=== PATIENT | female | born 1970 | race Caucasian/White ===

== ENCOUNTER → 2016-09-20 | Outpatient (CLI) | payer BC ==
[~2016-09-20] MED LIST: ASCAUNK; MULTTAB58 PO
== END | disposition home or self-care (01) ==
LOC: C.PAPS 10:17
PROVIDERS: ATTEND Obstetrics & Gynecology
DX: Z01.419 Encounter for gynecological examination (general) (routine) without abnormal findings (principal)

== ENCOUNTER → 2016-10-25 | Outpatient (CLI) | payer BC ==
[2016-10-25 10:07] LABS: ESTIMATED AVERAGE GLUCOSE 114 mg/dl; HA1C FLAG Normal (Normal)
[2016-10-25 10:17] LABS: BLOOD UREA NITROGEN 19 mg/dl (7-18); BUN/CREATININE RATIO 19.5 (10-20); CALCIUM 8.7 mg/dl (8.5-10.1); CARBON DIOXIDE 27 mmol/L (21-32); CHLORIDE 104 mmol/L (98-107); CHOLESTEROL 204 mg/dl (0-200); CHOLESTEROL/HDL RATIO 4.6; CREATININE 0.99 mg/dl (0.60-1.20); GLUCOSE 75 mg/dl (70-99); HDL CHOLESTEROL 44 mg/dl; LDL CHOLESTEROL CALCULATED 142 mg/dl; POTASSIUM 4.1 mmol/L (3.5-5.1); SODIUM 139 mmol/L (136-145); TRIGLYCERIDES 90 mg/dl (0-150); VERY LOW DENSITY LIPOPROT CALC 18 mg/dl
== END | disposition home or self-care (01) ==
LOC: C.LAB1850 07:00
PROVIDERS: ATTEND Nurse Practitioner
DX: R73.01 Impaired fasting glucose (principal); Z13.1 Encounter for screening for diabetes mellitus; Z13.220 Encounter for screening for lipoid disorders; E55.9 Vitamin D deficiency, unspecified

== ENCOUNTER 2018-10-08 13:42 | Inpatient (IN) ==
[2018-10-08] MEDS ORDERED: ONDANSETRON INJ 2 MG/ML 2 ML VIAL IV STA (14:04)
[2018-10-08] MEDS ORDERED: HYDROmorphone INJ 0.5 MG/0.5 ML SYR IV PRN ×2 (14:04→20:01)
[2018-10-08 14:45] LABS: Basophils # (auto) 0.01 K/uL (0-0.2); Basophils % (auto) 0.1 %; Hematocrit (blood only) 45.2 % (37-47); Hemoglobin 15.5 g/dL (12.0-16.0); Immature Granulocytes # (auto) 0.07 K/uL (0.00-0.02); Immature Granulocytes % (auto) 0.5 %; Lymphocytes # (auto) 1.86 K/uL (1.2-3.4); Mean Corpuscular Hgb Conc 34.3 g/dL (32-36); Mean Corpuscular Volume 91.3 fL (80-100); Mean Platelet Volume 10.2 fL (7.4-10.4); Monocytes # (auto) 0.87 K/uL (0.11-0.59); Monocytes % (auto) 5.6 %; Neutrophils # (auto) 12.68 K/uL (1.4-6.5); Neutrophils % (auto) 81.8 %; Platelet Count 362 K/uL (130-400); RDW Standard Deviation 46.6 fL (36.4-46.3); Red Blood Count 4.95 M/uL (4.2-5.4); White Blood Count 15.49 K/uL (4.8-10.8)
--- NOTE | 2018-10-08 15:03 | XRay Report ---
XR chest 1V portable CLINICAL HISTORY: Chest Pain pain COMPARISON STUDY: 09/21/2018 FINDINGS: The bones soft tissues and hemidiaphragms are normal. The cardiomediastinal silhouette is n ormal. The lungs are clear. The pulmonary vasculature is normal. IMPRESSION: Negative chest. The above report was generated using voice recognition software. It may contain grammatical, syntax or spelling errors. Electronically signed by: Roel Lucas M.D. 10/08/2018 3:02 PM
[2018-10-08 15:05] LABS: Partial Thromboplastin Ratio 0.8; Prothrombin Time 10.2 Seconds (9.0-12.0)
[2018-10-08 15:07] LABS: Alanine Aminotransferase 39 U/L (12-78); Albumin Level 4.2 gm/dl (3.4-5.0); Aspartate Aminotransferase 9 U/L (15-37); Blood Urea Nitrogen 15 mg/dl (7-18); Calcium 9.7 mg/dl (8.5-10.1); Carbon Dioxide 25 mmol/L (21-32); Chloride 104 mmol/L (98-107); Creatinine Clr Calc Pharmacy 93.7 ml/min; Est GFR (African American) 90.7; Est GFR (Non-African American) 78.2; Glucose 123 mg/dl (70-99); Potassium 4.3 mmol/L (3.5-5.1); Sodium 136 mmol/L (136-145)
[2018-10-08 15:12] LABS: Albumin Globulin Ratio 1.1 (0.9-2); Alkaline Phosphatase 106 U/L (45-117); Bilirubin,Total 0.4 mg/dl (0.2-1); Globulin 3.8 gm/dl (2.5-4.0); Troponin I < 0.015 ng/ml (0-0.045)
--- NOTE | 2018-10-08 16:00 | Ultrasound Report ---
US venous doppler LE BI HISTORY: Pain. Edema. eval for dvt COMPARISON STUDY: M 07/12/2013 FINDINGS: Acute deep venous thrombosis within the right popliteal vein and one of the peroneal election clerk ior tibial veins. All remaining venous structures of the right as well as left leg appear unremarkabl e. Several varicosities are present but appear patent. IMPRESSION: Acute deep venous thrombosis right leg involving the popliteal and posterior tibial venous complexes. The above report was generated using voice recognition software. It may contain grammatical, syntax or spelling errors. Electronically signed by: Roel Lucas M.D. 10/08/2018 3:58 PM
[2018-10-08] MEDS ORDERED: HEPARIN 25000 UNIT/500 ML D5W IV ONE (16:03)
[2018-10-08] MEDS ORDERED: HEPARIN SOD 5,000 UNIT/0.5 ML VIAL ONE (16:04)
--- NOTE | 2018-10-08 16:06 | Emergency Department Note ---
Entered by Mamta Aguilar acting as a scribe for ED Provider Note CHIEF COMPLAINT: Cough and difficulty breathing HISTORY OF PRESENT ILLNESS: The patient is a 47 year old female presenting at the Emergency Room with complaints of cough and difficulty breathing. The patient reports she was at the hospital when they noticed blood clots in the lungs on a CT scan and referred her to the Emergency Room. She states the symptoms began 6 weeks ago with associated chest pain and occasional restriction in her airway. She notes she has not been able to sleep due to anxiety about her breathing issues. The patient denies any new swelling of her legs but does note she had surgery for varicose veins in her bilateral legs in the past year. She reports she was diagnosed with bronchitis and an xray has been completed recently. She states she has a history of asthma and superficial blood clots in her right thigh. She notes she has white spots on back of throat. The patient reports her aunt has a history of blood clots in her lungs. Pt denies LOC, headache, fevers, chills, diaphoresis, visual changes, neck pain, nausea, vomiting, abdominal pain, back pain, melena, hematochezia, urinary symptoms, numbness, weakness, lymphadenopathy, rash, or other complaints. REVIEW OF SYSTEMS: See HPI for pertinent positives and negatives. A total of ten systems were reviewed and were otherwise negative. PMHx/PSHx: Asthma, Bronchitis, Varicose Veins SOCIAL HISTORY: Patient lives at home. PHYSICAL EXAM: GENERAL: Awake, alert, uncomfortable appearing, in no distress HENT: Normocephalic, atraumatic. Oropharynx unremarkable. Oral thrush. EYES: Normal conjunctiva. Sclera non-icteric. NECK: Inspection normal. Non-tender. Supple. No nuchal rigidity. FROM. No masses. RESPIRATORY: Clear to auscultation. No wheezes. No rales. Normal respiratory effort. CARDIAC: Borderline tachycardic. Normal rhythm. No murmurs. No rubs. Extremities warm and well perfused. Pulses equal. No JVD. GI: Soft, non-distended. No tenderness to palpation. No rebound or guarding. No masses. RECTAL: Deferred. MUSCULOSKELETAL: Atraumatic. Chest examination reveals no tenderness. The back is symmetrical on inspection without obvious abnormality. There is no CVA tenderness to palpation. No joint edema. LOWER EXTREMITIES: Calves are non-tender. Right leg is slightly larger than the left leg. No edema. No discoloration. NEURO: Normal sensorium. No sensory or motor deficits noted. SKIN: No rash or jaundice noted. EMERGENCY DEPARTMENT COURSE: 1350: Past medical records reviewed. The patient was evaluated in room []. A complete history and physical exam was performed. 1405: I discussed the patient's case with NORMA Dhaliwal, and he will evaluate the patient for further management. 1410: I updated the patient who verbalized agreement and understanding of the treatment plan. MEDICAL DECISION MAKING: Prior records/ancillary studies reviewed. Outpatient CT scan revealed the patient had bilateral pulmonary emboli. Triage Nursing notes reviewed and agree them. Additional history obtained from the family. The patient's history was concerning for Tory symptoms. Differential diagnosis: Etiologies such as pulmonary emboli, pneumonia, COPD, reactive airway disease, CHF, cardiac ischemia, pneumothorax, musculoskeletal, infections, gastrointestinal, as well as others were entertained. Physical examination: As above. ER treatment provided: IV heparin initiated On reassessment the patient felt better. Diagnostic interpretation by me: The electrocardiogram was negative for pathologic change. The labs revealed an unremarkable CBC except for mild leukocytosis. Patient is on prednisone. Chemistry panel unremarkable. Imaging studies: CT scan report was reviewed. Ultrasound imaging pending. Consultation: A consultation was placed with the hospitalist. The case was discussed and diagnostics were reviewed. The patient was evaluated in the ER for further treatment. IMPRESSION: Bilateral pulmonary embolism PLAN: Being evaluated by hospitalist The scribe's documentation has been prepared under my direction and personally reviewed by me in its entirety. I confirm that the note above accurately reflects all work, treatment, procedures, and medical decision making performed by me. 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 Beliefs That Will Affect Care: None marital status: Current Living Situation: Spouse current occupational status: employed Other Information That Helps Us Care for You: No Feels Safe at Home: Yes Safety Concerns: Feels Safe At This Time Smoking Status: Never smoker Hx Alcohol Use: Yes Hx Substance Use: No Results & Data Vital Signs Vital Signs - 24 hr 10/08/18 13:47 10/08/18 14:35 Temperature 36.5 C Temperature Source Oral Sepsis Recent Fever Within 48 Hours No Sepsis Action Taken by Nursing No Action Required Pulse Rate 96 H Respiratory Rate 24 Respiratory Effort / Characteristics Spontaneous Splinting (from pain) Respiratory Depth Shallow Normal Respiratory Pattern Regular Blood Pressure 149/106 H Blood Pressure Mean 120 Blood Pressure Position Sitting Pulse Oximetry 95 Oxygen Delivery Method Room Air Room Air Home Medications Current Medication List: was personally reviewed by me Laboratory Data Attestation: I reviewed the patient's lab results. Result diagrams: 10/08/18 14:25 10/08/18 14:25 Lab Results 10/08/18 10/08/18 10/08/18 Range/Units 14:25 14:25 14:25 WBC 15.49 H (4.8-10.8) K/uL RBC 4.95 (4.2-5.4) M/uL Hgb 15.5 (12.0-16.0) g/dL Hct 45.2 (37-47) % MCV 91.3 (80-100) fL MCH 31.3 (25-34) pg MCHC 34.3 (32-36) g/dL RDW Std Deviation 46.6 H (36.4-46.3) fL RDW Coeff of Ida 14.0 (11.5-14.5) % Plt Count 362 (130-400) K/uL MPV 10.2 (7.4-10.4) fL Immature Gran % (Auto) 0.5 % Neut % (Auto) 81.8 % Lymph % (Auto) 12.0 % [place] % (Auto) 5.6 % Eos % (Auto) 0.0 % Baso % (Auto) 0.1 % Immature Gran # (Auto) 0.07 H (0.00-0.02) K/uL Neut # (Auto) 12.68 H (1.4-6.5) K/uL Lymph # (Auto) 1.86 (1.2-3.4) K/uL [place] # (Auto) 0.87 H (0.11-0.59) K/uL Eos # (Auto) 0.00 (0-0.5) K/uL Baso # (Auto) 0.01 (0-0.2) K/uL PT 10.2 (9.0-12.0) Seconds INR 1.0 (0.9-1.1) APTT 22.0 (21.0-31.0) Seconds PTT Ratio 0.8 Sodium 136 (136-145) mmol/L Potassium 4.3 (3.5-5.1) mmol/L Chloride 104 (98-107) mmol/L Carbon Dioxide 25 (21-32) mmol/L Anion Gap 7.0 (3-11) BUN 15 (7-18) mg/dl Creatinine 0.87 (0.6-1.2) mg/dl Est Cr Clr Drug Dosing 93.7 ml/min Est GFR ( Amer) 90.7 Est GFR (Non-Af Amer) 78.2 BUN/Creatinine Ratio 17.0 (10-20) Glucose 123 H (70-99) mg/dl Calcium 9.7 (8.5-10.1) mg/dl Total Bilirubin 0.4 (0.2-1) mg/dl AST 9 L (15-37) U/L ALT 39 (12-78) U/L Alkaline Phosphatase 106 (45-117) U/L Troponin I < 0.015 (0-0.045) ng/ml Total Protein 8.0 (6.4-8.2) gm/dl Albumin 4.2 (3.4-5.0) gm/dl Globulin 3.8 (2.5-4.0) gm/dl Albumin/Globulin Ratio 1.1 (0.9-2) Lipase 153 (73-393) U/L Administered Medications Hydromorphone HCl (Dilaudid) 0.5 mg IV Q15M PRN PRN Reason: Pain Stop: 10/22/18 14:03 Last Admin: 10/08/18 14:43 Dose: 0.5 mg Documented by: [id number] Discontinued Medications Ondansetron HCl (Zofran) 4 mg IV NOW STA Stop: 10/08/18 14:05 Last Admin: 10/08/18 14:43 Dose: 4 mg Documented by: [id number] Imaging Data Radiologist's Impression: Radiology results as stated below per my review and radiologist interpretation: CT angio chest PE protocol CT DOSE: 506.20 mGycm HISTORY: Dyspnea Cough TECHNIQUE: Multiaxial CT images of the chest were performed following the intravenous administration of contrast to evaluate the pulmonary arteries. Maximal intensity projection images were also obtained. A dose lowering last hnique was utilized adhering to the principles of ALARA. COMPARISON STUDY: None. FINDINGS: The thoracic aorta is normal in course and caliber. No evidence for aneurysm or dissection. The pulmonary vasculature is remarkable for filling defects involving the lower lobe pulmonary arterial vasculature bilaterally as well as more central filling defects involving the second order vessels. No evidence for main or central pulmonary embolus. No evidence for saddle embolus. Smaller filling defects are identified within the upper lobe pulmonary arterial vasculature bilaterally. IMPRESSION: 1. The study is positive for bilateral acute pulmonary emboli. 2. Lungs otherwise are clear. The above report was generated using voice recognition software. It may contain grammatical, syntax or spelling errors. Electronically signed by: Roel Lucas M.D. 10/08/2018 1:31 PM ECG Data Attestation: I personally reviewed and interpreted this ECG as follows: Indication: SOB/dyspnea Rate (beats per minute): 95 Rhythm: normal sinus Findings: + Q waves (inferior); no PVC, no ST depression, no ST elevation and no acute ischemic change Blood Pressure Blood Pressure Findings: Elevated blood pressure Blood Pressure Disposition: further management by hospitalist Discharge Plan Visit Data Chief Complaint: Abnormal Labs/Diagnostic Testing Stated Complaint: SENT FROM CT FOR PE ED Provider: Andrea Leija Discharge Problem: Bilateral pulmonary embolism Patient Disposition: Being Evaluated by Hospitalist Forms Stand Alone Forms: My [facility] Prescriptions Prescriptions: No Action prednisone 10 mg tablet 1 dose PO DIRECTED RF: 0 atorvastatin 20 mg tablet 20 mg PO DAILY RF: 0 ipratropium-albuterol 0.5 mg-3 mg(2.5 mg base)/3 mL solution for nebulization 3 ml Inhalation Q4 PRN (Reason: Shortness Of Breath) RF: 0 lisinopril 20 mg tablet 20 mg PO DAILY RF: 0 promethazine-codeine 6.25-10 mg/5 mL Syrup 1 tsp PO HS PRN (Reason: Cough) RF: 0 norethindrone acetate 5 mg Tablet 5 mg PO DAILY RF: 0 albuterol sulfate 90 mcg/actuation HFA aerosol inhaler 1 - 2 puff Inhalation Q4 PRN (Reason: Shortness Of Breath) RF: 0 budesonide 1 mg/2 mL suspension for nebulization 1 dose Inhalation BID RF: 0 Referrals Referrals: Smita Winslow CRNP [Primary Care Provider] - The scribe's documentation has been prepared under my direction and personally reviewed by me in its entirety. I confirm that the note above accurately reflects all work, treatment, procedures, and medical decision making performed by me.
--- NOTE | 2018-10-08 16:48 | History & Physical Report ---
Date of Service October 08, 2018 Assessment & Plan (1) Bilateral pulmonary embolism: likely provoked from plane flight which was about 4 weeks ago will treat with heparin drip initially, vitals are stable hypercoagulable work up sent by ED, will need follow up with PCP transition to Xarelto tomorrow, plan for at least 6-12 months of treatment (2) Asthma: chronic, intermittent asthma typically well controlled currently on Prednisone taper for recent flare, on 20mg daily will use Nebulizers PRN lungs are clear, no wheezing at time of admission dyspnea and cough likely due to PE CTA chest showed no acute pathology in the lungs (3) DVT (deep venous thrombosis): right leg heparin drip and then Xarelto (4) Chest pain: due to excessive coughing, worse with cough use Percocet PRN as pain is pretty severe (5) Oral thrush: use Nystatin Q6 likely from inhaled steroids time spent on this admission was 40 minutes, included speaking with ED physician, reviewing records and speaking with patient and her History of Present Illness Chief Complaint: Cough for 5 weeks Primary Care Provider: IZABELLA Felix 47 yo female with history of asthma that is intermittent, typically with two exacerbations a year who presents from her PCP office. She was sent to pulmonogy today for evaluation because she has been coughing for 5 weeks straight. She says that it is typical for her to get a bout of bronchitis this time of year but usually it responds quickly to Prednisone and a course of antibiotics in addition to some nebulizer treatments. Despite the typical treatment her cough was still lingering. The cough was productive at times but not every time. No hemoptysis seen. She coughs violently at times, has caused her right side of her chest to hurt. She denies pain with deep inspiration. She feels a tightness in her chest when she lays down. She was sent for a CTA of her chest as outpatient and it showed bilateral PE so she was sent to the ED. In the ED her vitals were stable, no hypoxia. Labs were drawn and she was sent for lower extremity doppler that showed a DVT in right lower leg. In hindsight, the patient says her right calf has been swollen and tender for a few weeks. She did fly on a plan 4 weeks ago but it was not long. 30 minute flight from [place] to [place] and then an hour flight to [place]. Then she flew back. She remembers having the cough prior to flying but then her symtpoms got worse when she returned. She does have a personal history of superficial clots but never a DVT. She had varicose vein surgery on the right leg in the past. She does not smoke. She has an aunt who had blood clots. She was started on heparin drip and given Dilaudid for pain. Admission requested. Allergies Allergy/AdvReac Type Severity Reaction Status Date / Time No Known Allergies Allergy Unverified 10/08/18 14:39 Home Medications Home Medications Medication Instructions Recorded Confirmed Type albuterol sulfate 1 - 2 puff INHALATION Q4 PRN 10/08/18 10/08/18 History atorvastatin 20 mg PO DAILY 10/08/18 10/08/18 History budesonide 1 dose INHALATION BID 10/08/18 10/08/18 History ipratropium-albuterol 3 ml INHALATION Q4 PRN 10/08/18 10/08/18 History lisinopril 20 mg PO DAILY 10/08/18 10/08/18 History norethindrone acetate 5 mg PO DAILY 10/08/18 10/08/18 History prednisone 1 dose PO DIRECTED 10/08/18 10/08/18 History promethazine-codeine 1 tsp PO HS PRN 10/08/18 10/08/18 History Past Med/Surg History Medical History Bronchitis (Acute) Asthma (Chronic) Varicose veins of both lower extremities Family History Other Blood clot in vein Social History Preferred Language: Greenlandic Communication Ability: Effective 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 Beliefs That Will Affect Care: None marital status: Current Living Situation: Spouse current occupational status: employed Other Information That Helps Us Care for You: No Feels Safe at Home: Yes Safety Concerns: Feels Safe At This Time Smoking Status: Never smoker Hx Alcohol Use: Yes Hx Substance Use: No Review of Systems All systems reviewed & are unremarkable except as noted in HPI & below Constitutional: + fatigue; no fever, no chills, no sweats and no weakness Ear, Nose, Mouth, Throat: + sore throat; no dizziness Respiratory: + cough, + chest congestion, + dyspnea, + dyspnea on exertion, + pain with cough and + sputum production; no change in sputum, no hemoptysis, no pain on inspiration, no snoring and no wheezing Cardiovascular: + chest pain, + dyspnea, + dyspnea on exertion and + calf pain (right leg); no chest pain at rest, no chest pain with activity, no radiating jaw, neck or arm pain, no dyspnea at rest, no lightheadedness, no syncope and no edema Gastrointestinal: no abdominal pain, no nausea, no vomiting, no constipation and no diarrhea/loose stools Genitourinary (Female): no dysuria, no difficulty urinating, no urinary frequency, no urinary hesitancy and no urinary urgency Musculoskeletal: no back pain and no neck pain Physical Exam Vital Signs (Past 24 Hours): Last Vital Signs Temp 36.5 C 10/08/18 13:47 Pulse 96 H 10/08/18 16:19 Resp 18 10/08/18 16:19 BP 144/83 H 10/08/18 16:19 Pulse Ox 96 10/08/18 16:19 Constitutional: WD/WN, vitals as above Eyes: PERRL, conjunctivae normal, anicteric sclerae ENMT: external ear and nose normal, oropharynx normal Neck: trachea midline, no thyromegaly Respiratory: normal respiratory effort, lungs clear to auscultation Cardiovascular: RRR, no murmur, no edema Chest (Breasts): Chest: normal inspection of chest (right ribs tender to palpation) Gastrointestinal (Abdomen): normal bowel sounds, soft, nontender, no hepatosplenomegaly Musculoskeletal: no cyanosis or clubbing, extremities motor strength 5/5 Skin: no rashes, warm and dry Neurologic: patellar DTR's 2+ bilat, sensation intact and PERRL, EOMI, accommodation nl, no face palsy, no dysarthria Psychiatric: A+Ox3, euthymic affect Lymphatic: no cervical or axillary lymphadenopathy Results & Data Laboratory Results Laboratory Results - last 24 hr 10/08/18 10/08/18 10/08/18 14:25 14:25 14:25 WBC 15.49 H RBC 4.95 Hgb 15.5 Hct 45.2 MCV 91.3 MCH 31.3 MCHC 34.3 RDW Std Deviation 46.6 H RDW Coeff of Ida 14.0 Plt Count 362 MPV 10.2 Immature Gran % (Auto) 0.5 Neut % (Auto) 81.8 Lymph % (Auto) 12.0 [place] % (Auto) 5.6 Eos % (Auto) 0.0 Baso % (Auto) 0.1 Immature Gran # (Auto) 0.07 H Neut # (Auto) 12.68 H Lymph # (Auto) 1.86 [place] # (Auto) 0.87 H Eos # (Auto) 0.00 Baso # (Auto) 0.01 PT 10.2 INR 1.0 APTT 22.0 PTT Ratio 0.8 Sodium 136 Potassium 4.3 Chloride 104 Carbon Dioxide 25 Anion Gap 7.0 BUN 15 Creatinine 0.87 Est Cr Clr Drug Dosing 93.7 Est GFR ( Amer) 90.7 Est GFR (Non-Af Amer) 78.2 BUN/Creatinine Ratio 17.0 Glucose 123 H Calcium 9.7 Total Bilirubin 0.4 AST 9 L ALT 39 Alkaline Phosphatase 106 Troponin I < 0.015 Total Protein 8.0 Albumin 4.2 Globulin 3.8 Albumin/Globulin Ratio 1.1 Lipase 153 Diagnostic Findings US venous doppler LE BI HISTORY: Pain. Edema. eval for dvt COMPARISON STUDY: 07/12/2013 FINDINGS: Acute deep venous thrombosis within the right popliteal vein and one of the peroneal posterior tibial veins. All remaining venous structures of the right as well as left leg appear unremarkable. Several varicosities are present but appear patent. IMPRESSION: Acute deep venous thrombosis right leg involving the popliteal and posterior tibial venous complexes. CT angio chest PE protocol FINDINGS: The thoracic aorta is normal in course and caliber. No evidence for aneurysm or dissection. The pulmonary vasculature is remarkable for filling defects involving the lower lobe pulmonary arterial vasculature bilaterally as well as more central filling defects involving the second order vessels. No evidence for main or central pulmonary embolus. No evidence for saddle embolus. Smaller filling defects are identified within the upper lobe pulmonary arterial vasculature bilaterally. IMPRESSION: 1. The study is positive for bilateral acute pulmonary emboli. 2. Lungs otherwise are clear. Code Status & VTE Plan Code Status full code VTE Prophylaxis Plan VTE Prophylaxis will be ordered: Yes
[2018-10-08] MEDS ORDERED: PROMETHAZINE PO PRN (17:25)
[2018-10-08] MEDS ORDERED: ACETAMINOPHEN 325 MG TAB PO PRN (17:25)
[2018-10-08] MEDS ORDERED: ALBUT/IPRATROP 3MG/0.5MG NEB 3 ML VIAL INH PRN (17:25)
[2018-10-08] MEDS ORDERED: Heparin IV Standard *NO* Bolus IV SCH (17:25)
[2018-10-08] MEDS ORDERED: ALBUT/IPRATROP 3MG/0.5MG NEB 3 ML VIAL NEB PRN (17:25)
[2018-10-08] MEDS ORDERED: CODEINE PO PRN (17:25)
[2018-10-08] MEDS ORDERED: OXYCODONE/ACETAMINOPHEN 5mg/325mg TAB PO PRN (17:30)
[2018-10-08] MEDS ORDERED: Heparin Adult STANDARD Wt-Based Dextrose 5% 25,000 units/500 mL IV SCH (18:00)
[2018-10-08] MEDS: NYSTATIN SUSP 500,000 U/5 ML UDC PO SCH ×2 (18:10→20:34)
[2018-10-08] MEDS: ONDANSETRON INJ 2 MG/ML 2 ML VIAL IV PRN ×2 (18:51→23:30)
[2018-10-08] MEDS: BUDESONIDE 0.5 MG/2 ML VIAL (PULMICORT) INH SCH (21:53)
[2018-10-08 23:45] LABS: Partial Thromboplastin Ratio 1.1; Partial Thromboplastin Time 30.2 Seconds (21.0-31.0)
[2018-10-09] MEDS ORDERED: HEPARIN IV BOLUS 6,000 UNITS in SYRINGE 0 ML IV ONE
[2018-10-09 06:06] LABS: Hematocrit (blood only) 44.3 % (37-47); Hemoglobin 14.8 g/dL (12.0-16.0); Mean Corpuscular Hgb Conc 33.4 g/dL (32-36); Mean Corpuscular Volume 92.5 fL (80-100); Platelet Count 331 K/uL (130-400); RDW Coefficient of Variation 14.1 % (11.5-14.5); RDW Standard Deviation 47.6 fL (36.4-46.3); Red Blood Count 4.79 M/uL (4.2-5.4); White Blood Count 13.92 K/uL (4.8-10.8)
[2018-10-09 06:45] LABS: BUN Creatinine Ratio 17.4 (10-20); Calcium 8.6 mg/dl (8.5-10.1); Creatinine Clr Calc Pharmacy 90.7 ml/min; Est GFR (African American) 88.2; Est GFR (Non-African American) 76.1
[2018-10-09 06:46] LABS: Basophils # (auto) 0.03 K/uL (0-0.2); Basophils % (auto) 0.2 %; Eosinophils # (auto) 0.21 K/uL (0-0.5); Eosinophils % (auto) 1.5 %; Immature Granulocytes # (auto) 0.07 K/uL (0.00-0.02); Immature Granulocytes % (auto) 0.5 %; Lymphocytes # (auto) 5.75 K/uL (1.2-3.4); Lymphocytes % (auto) 41.3 %; Monocytes # (auto) 1.13 K/uL (0.11-0.59); Monocytes % (auto) 8.1 %; Neutrophils # (auto) 6.73 K/uL (1.4-6.5); Neutrophils % (auto) 48.4 %; RBC Morphology Unremarkable
[2018-10-09 07:01] LABS: Partial Thromboplastin Ratio 2.3
[2018-10-09 07:05] LABS: Partial Thromboplastin Time 62.6 Seconds (21.0-31.0)
[2018-10-09] MEDS: BUDESONIDE 0.5 MG/2 ML VIAL (PULMICORT) INH SCH (07:27)
[2018-10-09 07:33] VITALS: BP 108/72; O2SAT 99
[2018-10-09] MEDS: NYSTATIN SUSP 500,000 U/5 ML UDC PO SCH (08:30)
[2018-10-09 08:34] VITALS: TEMP 97.5
[2018-10-09] MEDS ORDERED: LISINOPRIL 20 MG TAB PO SCH (09:00)
[2018-10-09] MEDS ORDERED: NORETHINDRONE 5 MG TAB PO SCH (09:00)
[2018-10-09] MEDS ORDERED: ATORVASTATIN 20 MG TAB PO SCH (09:00)
[2018-10-09] MEDS ORDERED: predniSONE 20 MG TAB PO SCH (09:00)
[2018-10-09] MEDS ORDERED: RIVAROXABAN 15 MG TAB PO SCH (09:00)
[2018-10-09 10:58] VITALS: PULSE 94
--- NOTE | 2018-10-09 14:36 | Discharge Summary ---
Date of Service October 09, 2018 Admission HPI Per Admitting Provider 47 yo female with history of asthma that is intermittent, typically with two exacerbations a year who presents from her PCP office. She was sent to pulmonogy today for evaluation because she has been coughing for 5 weeks straight. She says that it is typical for her to get a bout of bronchitis this time of year but usually it responds quickly to Prednisone and a course of antibiotics in addition to some nebulizer treatments. Despite the typical treatment her cough was still lingering. The cough was productive at times but not every time. No hemoptysis seen. She coughs violently at times, has caused her right side of her chest to hurt. She denies pain with deep inspiration. She feels a tightness in her chest when she lays down. She was sent for a CTA of her chest as outpatient and it showed bilateral PE so she was sent to the ED. In the ED her vitals were stable, no hypoxia. Labs were drawn and she was sent for lower extremity doppler that showed a DVT in right lower leg. In hindsight, the patient says her right calf has been swollen and tender for a few weeks. She did fly on a plan 4 weeks ago but it was not long. 30 minute flight from [place] to [place] and then an hour flight to [place]. Then she flew back. She remembers having the cough prior to flying but then her symtpoms got worse when she returned. She does have a personal history of superficial clots but never a DVT. She had varicose vein surgery on the right leg in the past. She does not smoke. She has an aunt who had blood clots. She was started on heparin drip and given Dilaudid for pain. Admission requested. Admission Exam Per Admitting Provider Constitutional: WD/WN, vitals as above Eyes: PERRL, conjunctivae normal, anicteric sclerae ENMT: external ear and nose normal, oropharynx normal Neck: trachea midline, no thyromegaly Respiratory: normal respiratory effort, lungs clear to auscultation Cardiovascular: RRR, no murmur, no edema Chest (Breasts): Chest: normal inspection of chest (right ribs tender to palpation) Gastrointestinal (Abdomen): normal bowel sounds, soft, nontender, no hepatos plenomegaly Musculoskeletal: no cyanosis or clubbing, extremities motor strength 5/5 Skin: no rashes, warm and dry Neurologic: patellar DTR's 2+ bilat, sensation intact and PERRL, EOMI, accommodation nl, no face palsy, no dysarthria Psychiatric: A+Ox3, euthymic affect Lymphatic: no cervical or axillary lymphadenopathy Principal Diagnosis Bilateral pulmonary emboli Discharge Exam Constitutional WD/WN, vitals as above Eyes PERRL, conjunctivae normal, anicteric sclerae ENMT Ears: no hearing impairment and no external ear abnormality Nose: no external nose abnormality Mouth: no lip abnormality Throat: uvula midline and + posterior oropharynx abnormality (white plaque, discharge consistent with thrush) Neck trachea midline, no thyromegaly Respiratory normal respiratory effort, lungs clear to auscultation Cardiovascular RRR, no murmur, no edema Chest (Breasts) Chest: normal inspection of chest (right ribs tender to palpation) Gastrointestinal (Abdomen) normal bowel sounds, soft, nontender, no hepatosplenomegaly Musculoskeletal no cyanosis or clubbing, extremities motor strength 5/5 Skin no rashes, warm and dry Neurologic patellar DTR's 2+ bilat, sensation intact and PERRL, EOMI, accommodation nl, no face palsy, no dysarthria Psychiatric A+Ox3, euthymic affect Lymphatic no cervical or axillary lymphadenopathy Discharge Data Allergies Allergy/AdvReac Type Severity Reaction Status Date / Time No Known Allergies Allergy Unverified 10/08/18 14:39 Consultations 10/08/18 14:08 ED Decision to Admit Stat Ordered Studies 10/08/18 14:04 US venous doppler [facility] Hospital Course (1) Bilateral pulmonary embolism: likely provoked from plane flight which was about 4 weeks prior to symptoms treated with heparin drip initially, vitals are stable hypercoagulable work up sent by ED, will need follow up with PCP patient feeling fine the next morning, no issues over night vitals stable, specifically heart rate and blood pressure breathing well on room air, no distress transitioned to Xarelto 15mg BID, will take for 21 days then 20mg daily likely needs treated 6-12 months could consider referral to office systems technology instructor in next few weeks to months, especially if hypercoagulable panel abnormal (2) Asthma: chronic, intermittent asthma typically well controlled currently on Prednisone taper for recent flare, on 20mg daily instructed patient to complete that taper will use Nebulizers PRN lungs are clear, no wheezing at time of admission dyspnea and cough likely due to PE CTA chest showed no acute pathology in the lungs instructed to stop the inhaled budesonide due to the oral thrush (3) DVT (deep venous thrombosis): right leg, she does have symptoms of pain and swelling heparin drip and then Xarelto as above no clot in left leg (4) Chest pain: due to excessive coughing, worse with cough use Oxycodone PRN as pain is pretty severe if it is mild then use Motrin, Tylenol provided with Zofran PRN for any nausea associated with the Oxycodone (5) Oral thrush: Fluconazole x 14 days likely from inhaled steroids will hold statin for 14 days due to interaction with Fluconazole Total Time Total Time Spent Total Time Spent (In Minutes): 40 minutes Total Time Includes: Examination of the Patient, Discharge Planning, Medication Reconciliation and Other (discussion with at the bedside) Discharge Plan Discharge Items Patient Disposition: Home - Self-Care Reason For Visit: BILATERAL PE Discharge Diagnosis: Bilateral pulmonary emboli, right leg DVT chest pain from coughing Asthma Condition: Good Discharge Goals: Decrease discomfort, Improve disease control and Improve function Activity: Resume your previous activity Lifting: None Bathing: No limitations Sexual Activity: When tolerated Exercise/Sports: Gradually increase as tolerated Driving/Machine Use: No limitations Non-emergency contact: Primary Care Provider Call non-emergency contact if: you have any medication questions, your symptoms worsen, your pain is not controlled and you have a fever Follow-up/Referrals: Smita Winslow CRNP [Primary Care Provider] - 10/13/18 10:30 am (Please, follow up with Smita PAREKH on FridayOctober 13 at 10:30 am. ) Diet: Regular Addtl Provider Instructions: Medications - XARELTO: take 15mg twice a day for 15 days then change to 20mg daily in the evening - OXYCODONE: take as needed for rib pain - DIFLUCAN: take for oral thrush, take for 14 days - ZOFRAN: anti-nausea medication, take prior to Oxycodone to prevent some nausea Bilateral PE and DVT in right leg treat with Xarelto, see above use Oxycodone for rib pain if needed if pain is not severe then you can use Tylenol and Motrin you will need treated for 6-12 months, follow with PCP your blood work for hypercoagulable mutations is still pending, follow up with Smita Winslow Asthma: as we discussed, your lungs are clear, no wheezing cough and shortness of breath more likely to be due to pulmonary emboli stop BUDESONIDE twice a day, inhaled steroid that likely lead to oral thrush complete the Prednsione taper as prescribed use inhalers just as needed Oral thrush: due to inhaled steroids treat with Fluconazole for 14 days FOLLOW UP - Smita Winslow Prescriptions: New Xarelto 15 mg Tablet 15 mg PO BID 21 Days Qty: 42 RF: 0 Xarelto 20 mg tablet 20 mg PO DAILY Qty: 30 RF: 3 oxycodone 5 mg capsule 5 mg PO Q6 PRN (Reason: pain) Qty: 20 RF: 0 fluconazole [Diflucan] 100 mg tablet 100 mg PO DAILY 14 Days Qty: 14 RF: 0 ondansetron HCl [Zofran] 4 mg tablet 4 mg PO Q6 PRN (Reason: nausea and vomiting) 14 Days Qty: 20 RF: 0 Continued prednisone 10 mg tablet 1 dose PO DIRECTED RF: 0 atorvastatin 20 mg tablet 20 mg PO DAILY RF: 0 ipratropium-albuterol 0.5 mg-3 mg(2.5 mg base)/3 mL solution for nebulization 3 ml Inhalation Q4 PRN (Reason: Shortness Of Breath) RF: 0 lisinopril 20 mg tablet 20 mg PO DAILY RF: 0 promethazine-codeine 6.25-10 mg/5 mL Syrup 1 tsp PO HS PRN (Reason: Cough) RF: 0 norethindrone acetate 5 mg Tablet 5 mg PO DAILY RF: 0 albuterol sulfate 90 mcg/actuation HFA aerosol inhaler 1 - 2 puff Inhalation Q4 PRN (Reason: Shortness Of Breath) RF: 0 Discontinued budesonide 1 mg/2 mL suspension for nebulization 1 dose Inhalation BID RF: 0 Stand-Alone Forms: [facility] Discharge Orders: Discharge Order (Routine); Ordered 10/09/18 Ordered By: Bairon Jacobs Admission Data Admit Date/Time: 10/08/18 15:17 Attending Provider: Bairon Jacobs Admit Provider: Bairon Jacobs Primary Care Provider: Smita Winslow Other Providers: Bairon Jacobs Service: Telemetry Other Interventions: Discharge Summary Assessment (RN) Last Done: 10/09/18 10:57 Pending Studies at Discharge: Yes Studies:: hypercoagulable panel DC Date/Time DO NOT enter until pt leaves facility: 10/09/18 11:25
[2018-10-13 22:31] LABS: Anti Cardiolipin Ab IgG <14 GPL (< = 14); Anti Cardiolipin Ab IgM <12 MPL (< = 12); Anti-Thrombin III Activity 125 % activity (80-120); B2 Glycoprotein IgA <9 SAU (<=20); B2 Glycoprotein IgG <9 SGU (<=20); B2 Glycoprotein IgM <9 SMU (<=20); Lupus Anticoagulant Negative (Negative); Protein S Functional(Activity) 126 % (60-140)
== END 2018-10-09 11:25 | disposition home or self-care (01) | DRG 176 ==
LOC: ED 13:42 → 2S 15:17

== ENCOUNTER 2018-12-10 15:14 | Observation (INO) ==
--- NOTE | 2018-12-10 16:04 | Emergency Department Note ---
History of Present Illness General Chief complaint: Chest Pain Stated complaint: CHEST PAIN WHERE BLOOD CLOTS ARE LOCATED Time Seen by Provider: 12/10/18 15:45 History of Present Illness Maximum Pain Intensity: 5 This is a 48-year-old female who presents to the emergency department via pr ivate vehicle with complaints of "chest pain were blood clots are located". The patient notes that she was diagnosed with bilateral pulmonary emboli back in September of this year about 2 months ago. She has been on 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 since that time, indicating Xarelto. She has missed no doses. She states that after she was diagnosed she was seen 3 days later and had a repeat chest CT secondary to her symptoms and that did not show any new blood clots. She notes that she was doing well up until the past 1 to 2 days she began with left-sided chest pinching/discomfort that she is not sure what exacerbates this but does note it may be with exertion. She notes that it hurt more today therefore concerning her and prompting her arrival here today. She describes it now is more of a discomfort rather than pain but it was numerically rated as a 5/10 at one point. She has a history of hypertension and cholesterol but no diabetes. No history of TX. No family history of TX at a young age. Home Medications Home Medications Medication Instructions Recorded Confirmed Type albuterol sulfate 1 - 2 puff INHALATION Q4 PRN 10/08/18 12/10/18 History atorvastatin 20 mg PO DAILY 10/08/18 12/10/18 History ipratropium-albuterol 3 ml INHALATION Q4 PRN 10/08/18 12/10/18 History lisinopril 20 mg PO QAM 10/08/18 12/10/18 History promethazine-codeine 1 tsp PO HS PRN 10/08/18 12/10/18 History oxycodone 5 mg PO Q6 PRN #20 cap 10/09/18 12/10/18 Rx rivaroxaban [Xarelto] 20 mg PO DAILY #30 tab 10/09/18 12/10/18 Rx acetaminophen [Tylenol Extra 500 mg PO QID PRN 10/12/18 12/10/18 History Strength] cholecalciferol (vitamin D3) 5,000 unit PO QAM 10/12/18 12/10/18 History [Vitamin D3] omeprazole 20 mg PO BID PRN 12/10/18 12/10/18 History Allergies Allergy/AdvReac Type Severity Reaction Status Date / Time seasonal Allergy Intermediate sneezing/itchy Uncoded 12/10/18 16:09 watery eyes Past Med/Surg History Medical History Asthma Bronchitis Varicose veins of both lower extremities Family History Other Blood clot in vein Social History Preferred Language: Ukrainian Communication Ability: Effective 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 Beliefs That Will Affect Care: None marital status: Current Living Situation: Family current occupational status: employed Other Information That Helps Us Care for You: No Feels Safe at Home: Yes Safety Concerns: Feels Safe At This Time Smoking Status: Unknown if ever smoked Hx Alcohol Use: No Hx Substance Use: No Review of Systems A total of 10 systems reviewed and were otherwise negative Physical Exam Vital Signs Vital Signs - 24 hr 12/10/18 15:17 12/10/18 17:50 12/10/18 19:41 Temperature 36.8 C Temperature Source Oral Sepsis Recent Fever Within 48 Hours No Sepsis New/Unexplained Change in Mental Status No Sepsis Action Taken by Nursing No Action Required Pulse Rate 101 H Pulse Rate [Apical] 90 94 H Respiratory Rate 22 18 18 Respiratory Effort / Characteristics Non-Labored Respiratory Depth Normal Blood Pressure 143/85 H Blood Pressure [Right Arm] 131/80 114/71 Blood Pressure Mean 104 Blood Pressure Mean [Right Arm] 97 85 Pulse Oximetry 97 97 95 Oxygen Delivery Method Room Air Room Air 12/10/18 21:00 Temperature Temperature Source Sepsis Recent Fever Within 48 Hours Sepsis New/Unexplained Change in Mental Status Sepsis Action Taken by Nursing Pulse Rate Pulse Rate [Apical] 94 H Respiratory Rate 18 Respiratory Effort / Characteristics Non-Labored Respiratory Depth Normal Blood Pressure Blood Pressure [Right Arm] 121/77 Blood Pressure Mean Blood Pressure Mean [Right Arm] 91 Pulse Oximetry 97 Oxygen Delivery Method Room Air VITAL SIGNS - Vital signs and nursing notes were reviewed. Hypertensive, slightly tachycardic, otherwise stable. GENERAL - 48-year-old female appearing her stated age who is in no acute distress. Communicates well with provider and answers questions appropriately. SKIN - Without rashes. No meningeal or petechial rash HEAD - NC/AT. EYES - PERRL with EOMI bilaterally. Sclera anicteric. EARS - No deformities of external structures noted on gross examination bilaterally. NOSE - Midline and without cyanosis. No epistaxis or purulent drainage noted. MOUTH/OROPHARYNX - Without perioral cyanosis. NECK - Neck with FROM. No nuchal rigidity. LUNGS - Chest wall symmetric without accessory muscle use, intercostals retractions, or central cyanosis. Normal vesicular breath sounds CTA B/L. No wheezes, rales, or rhonchi appreciated. CARDIAC - RRR with S1/S2. No murmur, rubs, or gallops appreciated. ABDOMEN - Abdominal contour normal without pulsations or visible masses. BS normoactive all four quadrants. No tenderness, palpable masses, hepatosplenomegaly, or ascites noted. EXTREMITIES - No clubbing or peripheral cyanosis. No pretibial edema present. Perhaps slight enlargement of the right calf circumference compared to the left. +5/5 strength noted in UE/LE bilaterally. NEUROLOGIC - Cranial nerves II through XII grossly intact. PSYCH - A&Ox3 and cooperates fully with examiner. Pt is very pleasant and interacts well with examiner. Course Administered Medications Ioversol (Optiray 320 125ml) 119 ml IV ONCE PRN PRN Reason: Interaction Checking Stop: 12/14/18 17:11 Last Admin: 12/10/18 17:14 Dose: 119 ml Documented by: [id number] Medical Decision Making Laboratory Data Result diagrams: 12/10/18 16:13 12/10/18 16:13 Lab Results 12/10/18 12/10/18 12/10/18 Range/Units 16:13 16:13 16:13 WBC 8.31 (4.8-10.8) K/uL RBC 4.39 (4.2-5.4) M/uL Hgb 13.5 (12.0-16.0) g/dL Hct 39.6 (37-47) % MCV 90.2 (80-100) fL MCH 30.8 (25-34) pg MCHC 34.1 (32-36) g/dL RDW Std Deviation 44.1 (36.4-46.3) fL RDW Coeff of Ida 13.5 (11.5-14.5) % Plt Count 382 (130-400) K/uL MPV 10.0 (7.4-10.4) fL Immature Gran % (Auto) 0.2 % Neut % (Auto) 52.0 % Lymph % (Auto) 34.7 % [place] % (Auto) 10.7 % Eos % (Auto) 2.0 % Baso % (Auto) 0.4 % Immature Gran # (Auto) 0.02 (0.00-0.02) K/uL Neut # (Auto) 4.32 (1.4-6.5) K/uL Lymph # (Auto) 2.88 (1.2-3.4) K/uL [place] # (Auto) 0.89 H (0.11-0.59) K/uL Eos # (Auto) 0.17 (0-0.5) K/uL Baso # (Auto) 0.03 (0-0.2) K/uL PT 11.7 (9.0-12.0) Seconds INR 1.2 H (0.9-1.1) APTT 30.6 (21.0-31.0) Seconds PTT Ratio 1.1 Sodium 137 (136-145) mmol/L Potassium 3.9 (3.5-5.1) mmol/L Chloride 105 (98-107) mmol/L Carbon Dioxide 26 (21-32) mmol/L Anion Gap 6.0 (3-11) BUN 16 (7-18) mg/dl Creatinine 0.91 (0.6-1.2) mg/dl Est Cr Clr Drug Dosing 91.1 ml/min Est GFR ( Amer) 85.3 Est GFR (Non-Af Amer) 73.6 BUN/Creatinine Ratio 17.9 (10-20) Glucose 127 H (70-99) mg/dl Calcium 8.8 (8.5-10.1) mg/dl Magnesium 2.0 (1.8-2.4) mg/dl Total Bilirubin 0.2 (0.2-1) mg/dl AST 30 (15-37) U/L ALT 87 H (12-78) U/L Alkaline Phosphatase 95 (45-117) U/L Troponin I < 0.015 (0-0.045) ng/ml Total Protein 7.2 (6.4-8.2) gm/dl Albumin 3.7 (3.4-5.0) gm/dl Globulin 3.5 (2.5-4.0) gm/dl Albumin/Globulin Ratio 1.1 (0.9-2) Lipase 146 (73-393) U/L Specimen Hemolysis POC Ur Test (NEG) 12/10/18 12/10/18 Range/Units 18:49 19:33 WBC (4.8-10.8) K/uL RBC (4.2-5.4) M/uL Hgb (12.0-16.0) g/dL Hct (37-47) % MCV (80-100) fL MCH (25-34) pg MCHC (32-36) g/dL RDW Std Deviation (36.4-46.3) fL RDW Coeff of Ida (11.5-14.5) % Plt Count (130-400) K/uL MPV (7.4-10.4) fL Immature Gran % (Auto) % Neut % (Auto) % Lymph % (Auto) % [place] % (Auto) % Eos % (Auto) % Baso % (Auto) % Immature Gran # (Auto) (0.00-0.02) K/uL Neut # (Auto) (1.4-6.5) K/uL Lymph # (Auto) (1.2-3.4) K/uL [place] # (Auto) (0.11-0.59) K/uL Eos # (Auto) (0-0.5) K/uL Baso # (Auto) (0-0.2) K/uL PT (9.0-12.0) Seconds INR (0.9-1.1) APTT (21.0-31.0) Seconds PTT Ratio Sodium (136-145) mmol/L Potassium (3.5-5.1) mmol/L Chloride (98-107) mmol/L Carbon Dioxide (21-32) mmol/L Anion Gap (3-11) BUN (7-18) mg/dl Creatinine (0.6-1.2) mg/dl Est Cr Clr Drug Dosing ml/min Est GFR ( Amer) Est GFR (Non-Af Amer) BUN/Creatinine Ratio (10-20) Glucose (70-99) mg/dl Calcium (8.5-10.1) mg/dl Magnesium (1.8-2.4) mg/dl Total Bilirubin (0.2-1) mg/dl AST (15-37) U/L ALT (12-78) U/L Alkaline Phosphatase (45-117) U/L Troponin I < 0.015 (0-0.045) ng/ml Total Protein (6.4-8.2) gm/dl Albumin (3.4-5.0) gm/dl Globulin (2.5-4.0) gm/dl Albumin/Globulin Ratio (0.9-2) Lipase (73-393) U/L Specimen Hemolysis POC Ur Test NEG (NEG) Imaging Data Radiologist's Impression: CT angio chest PE protocol CT DOSE: 742.41 mGy.cm HISTORY: Dyspnea chest discomfort, hx PE, on Xarelto TECHNIQUE: Multiaxial CT images of the chest were performed following the intravenous administration of contrast to evaluate the pulmonary arteries. Maximal intensity projection images were also obtained. A dose lowering technique was utilized adhering to the principles of ALARA. COMPARISON STUDY: 10/12/2018 FINDINGS: Partial substernal thyroid unchanged from the prior exam. No significant cardiac enlargement. The pulmonary emboli procedure described are considerably diminished in prominence. Several small residual second-order filling defects. The central left lower lobe filling defects are essentially resolved. There are no significant new or interval filling defects. Small residual foci are present within the right upper right lower lobe and to a lesser extent left lower lobe. IMPRESSION: 1. Improving bilateral pulmonary emboli. 2. Several small peripheral filling defects considered to be minimal residual from the prior exam. 3. No new or interval findings. 4. Lungs remain clear. The above report was generated using voice recognition software. It may contain grammatical, syntax or spelling errors. Electronically signed by: Roel Lucas M.D. 12/10/2018 5:26 PM [facility] Narrative Patient was seen and evaluated as above in room C11. Review was performed of nursing notes and vital signs. After obtaining a thorough history and physical examination the above work up was performed. She presents to us today with chest discomfort. She has a history of PE. On examination she is slightly tachycardic, hypertensive but afebrile. Based upon her past mental history decision was made to obtain IV access and repeat a CTA of the chest after thoroughly discussing with her benefit versus risk. Results of the CT scan are as above. There are improving bilateral pulmonary emboli noted. It appears that there is overall improvement. Initial troponin was negative and not consistent with cardiac injury. Her EKG reveals normal sinus rhythm, rate of 95 bpm without any evidence of TX on this exam. The patient's labs reveal no leukocytosis or concerning anemia. Her coags do not reveal any concern and her metabolic panel does not reveal any evidence of kidney failure. Slight e levation of ALT at 87. Troponin then negative x2. Patient was found to have a heart score between 3 and 4. This changes depending upon the history in regard to suspicion. UPT is negative. The patient was educated upon benefit versus risk of inpatient management versus discharge. Given the patient's risk factors to include hypertension, BMI, hypercholesterolemia, age, history it is felt that it would be warranted if the patient was in agreement to be admitted for further evaluation and management. Patient was given the option and also agreed and preferred to stay. I believe this certainly is reasonable and recommended. I will also note that for her to have appropriate cardiac work-up in a reasonable amount of time will be difficult as this is currently evening approaching a holiday weekend. It is felt that it would likely be in the best interest of the patient to have this performed here in the hospital. I discussed the case with the hospitalist and attending physician. Please refer to further documentation regarding her stay Case was discussed with the attending physician. GCS: 15 In the evaluation and treatment of this patient, the following differential di agnoses were considered: TX, ASC, Dysrhythmia, Angina, Mediastinitis, GERD, Esophagitis, PE, Pneumonia, Bronchitis, Costochondritis, Rib Fracture, Zoster. Impression & Plan Chest pain Discharge Plan Visit Data *Final* Discharge Date/Time: 12/10/18 21:29 Chief Complaint: Chest Pain Stated Complaint: CHEST PAIN WHERE BLOOD CLOTS ARE LOCATED ED Provider: Reynaldo Maddox ED Midlevel Provider: John Welch Discharge Problem: Chest pain Patient Disposition: Admitted As Inpatient Condition: Good Discharge Instructions Interventions: ED Discharge Assessment Last Done: 12/10/18 21:29
[2018-12-10 16:27] LABS: Basophils # (auto) 0.03 K/uL (0-0.2); Basophils % (auto) 0.4 %; Eosinophils # (auto) 0.17 K/uL (0-0.5); Hematocrit (blood only) 39.6 % (37-47); Hemoglobin 13.5 g/dL (12.0-16.0); Immature Granulocytes # (auto) 0.02 K/uL (0.00-0.02); Immature Granulocytes % (auto) 0.2 %; Lymphocytes # (auto) 2.88 K/uL (1.2-3.4); Lymphocytes % (auto) 34.7 %; Mean Corpuscular Hgb Conc 34.1 g/dL (32-36); Mean Corpuscular Volume 90.2 fL (80-100); Monocytes # (auto) 0.89 K/uL (0.11-0.59); Monocytes % (auto) 10.7 %; Neutrophils # (auto) 4.32 K/uL (1.4-6.5); Platelet Count 382 K/uL (130-400); RDW Coefficient of Variation 13.5 % (11.5-14.5); RDW Standard Deviation 44.1 fL (36.4-46.3); Red Blood Count 4.39 M/uL (4.2-5.4); White Blood Count 8.31 K/uL (4.8-10.8)
[2018-12-10 16:35] LABS: INR 1.2 (0.9-1.1); Partial Thromboplastin Ratio 1.1; Partial Thromboplastin Time 30.6 Seconds (21.0-31.0); Prothrombin Time 11.7 Seconds (9.0-12.0)
[2018-12-10 16:50] LABS: Alanine Aminotransferase 87 U/L (12-78); Albumin Globulin Ratio 1.1 (0.9-2); Albumin Level 3.7 gm/dl (3.4-5.0); Alkaline Phosphatase 95 U/L (45-117); Aspartate Aminotransferase 30 U/L (15-37); BUN Creatinine Ratio 17.9 (10-20); Bilirubin,Total 0.2 mg/dl (0.2-1); Blood Urea Nitrogen 16 mg/dl (7-18); Calcium 8.8 mg/dl (8.5-10.1); Carbon Dioxide 26 mmol/L (21-32); Chloride 105 mmol/L (98-107); Creatinine Clr Calc Pharmacy 91.1 ml/min; Est GFR (African American) 85.3; Est GFR (Non-African American) 73.6; Globulin 3.5 gm/dl (2.5-4.0); Glucose 127 mg/dl (70-99); Potassium 3.9 mmol/L (3.5-5.1); Sodium 137 mmol/L (136-145); Total Protein 7.2 gm/dl (6.4-8.2); Troponin I < 0.015 ng/ml (0-0.045)
[2018-12-10] MEDS ORDERED: OPTIRAY 320 125ml IV PRN (17:12)
--- NOTE | 2018-12-10 17:28 | CT Scan Report ---
CT angio chest PE protocol CT DOSE: 742.41 mGy.cm HISTORY: Dyspnea chest discomfort, hx PE, on Xarelto TECHNIQUE: Multiaxial CT images of the chest were performed following the intravenous administration of contrast to evaluate the pulmonary arteries. Maximal intensity projection images were also obtaine d. A dose lowering technique was utilized adhering to the principles of ALARA. COMPARISON STUDY: 10/12/2018 FINDINGS: Partial substernal thyroid unchanged from the prior exam. No significant cardiac enlargemen t. The pulmonary emboli procedure described are considerably diminished in prominence. Several small res idual second-order filling defects. The central left lower lobe filling defects are essentially resol antonio. There are no significant new or interval filling defects. Small residual foci are present within the right upper right lower lobe and to a lesser extent left l ower lobe. IMPRESSION: 1. Improving bilateral pulmonary emboli. 2. Several small peripheral filling defects considered to be minimal residual from the prior exam. 3. No new or interval findings. 4. Lungs remain clear. The above report was generated using voice recognition software. It may contain grammatical, syntax or spelling errors. Electronically signed by: Roel Lucas M.D. 12/10/2018 5:26 PM
--- NOTE | 2018-12-10 21:14 | History & Physical Report ---
Date of Service December 10, 2018 Assessment & Plan (1) Chest pain: 48 y/o F Hx HTN, HLD, obese, glucose intolerance. Admitted with BL PEs 09/2018 following a plane flight. She presents with intermittent L CP for 3 days. Today the pain worsened, prompting her to visit the ER. She denies nause a, vomiting, diaphoresis, SOB above baseline or lightheadedness. The pain is nonradiating. Initial labs and EKG do not support acute ischemia. 1) CP - observation overnight due to multiple risk factors. AM stress scheduled. ASA, statin provided. She is anticoagulated with Xarelto 2) PEs - CT demonstrates marked improvement - she is taking Xarelto. 3) HTN, HLD - cont Lisinopril, Lipitor Full code - Xarelto prophylaxis Total time for this admit including review of labs, meds, imaging, records - discussion with pt and ER attending. Present on Admission?: Yes History of Present Illness Chief Complaint: Chest pain Primary Care Provider: IZABELLA Felix 48 y/o F Hx HTN, HLD, obese, glucose intolerance. Admitted with PEs 09/2018 following a plane flight. She presents with intermittent L CP for 3 days. Today the pain worsened, prompting her to visit the ER. She denies nausea, vomiting, diaphoresis, SOB above baseline or lightheadedness. The pain is nonradiating. Initial labs and EKG do not support acute ischemia. PMH: 1) HTN 2) HLD 3) Obese - BMI 38 4) Glucose intolerance 5) PEs 09/2018 Social: Does not drink or smoke Family: Parents are diabetic - no history of CAD Allergies Allergy/AdvReac Type Severity Reaction Status Date / Time seasonal Allergy Intermediate sneezing/itchy Uncoded 12/10/18 16:09 watery eyes Home Medications Home Medications Medication Instructions Recorded Confirmed Type albuterol sulfate 1 - 2 puff INHALATION Q4 PRN 10/08/18 12/10/18 History atorvastatin 20 mg PO DAILY 10/08/18 12/10/18 History ipratropium-albuterol 3 ml INHALATION Q4 PRN 10/08/18 12/10/18 History lisinopril 20 mg PO QAM 10/08/18 12/10/18 History promethazine-codeine 1 tsp PO HS PRN 10/08/18 12/10/18 History oxycodone 5 mg PO Q6 PRN #20 cap 10/09/18 12/10/18 Rx rivaroxaban [Xarelto] 20 mg PO DAILY #30 tab 10/09/18 12/10/18 Rx acetaminophen [Tylenol Extra 500 mg PO QID PRN 10/12/18 12/10/18 History Strength] cholecalciferol (vitamin D3) 5,000 unit PO QAM 10/12/18 12/10/18 History [Vitamin D3] omeprazole 20 mg PO BID PRN 12/10/18 12/10/18 History Past Med/Surg History Medical History Asthma Bronchitis Varicose veins of both lower extremities Family History Other Blood clot in vein Social History Preferred Language: Greenlandic Communication Ability: Effective Beliefs That Will Affect Care: None marital status: Current Living Situation: Spouse current occupational status: employed Feels Safe at Home: Yes Smoking Status: Never smoker Second Hand Exposure: No Hx Alcohol Use: Yes Hx Substance Use: No Review of Systems Review of Systems: Gen: Denies fevers, night sweats, rigors, fatigue, malaise, weight loss/gain ENT: Denies congestion, throat pain, hearing loss Eyes: Denies acute visual changes CV: Progressive CP as above Pulmonary: Denies SOB, cough, wheezing GI: Denies N/V, diarrhea, constipation Neuro: Denies acute or unilateral weakness, acute gait impairment, headache or acute visual changes Musculoskeletal: Denies joint pain, inflammation Endocrine: Denies polydipsia, polyuria Skin: Denies acute rashe or ulcers Physical Exam Physical Exam: General: AAO x 3, no distress ENT: No erythema or exudates, no thrush Eyes: GISELLE, EOMI Head and neck: Normocephalic, atraumatic, No JVD, neck is supple. Chest/heart: Nontender, S1,2, RRR, no murmurs, no gallops Lungs: CTAB, no wheezing or crackles Abdomen: Nontender, nondistended, BS+ Neuro: AAO x 3, speech is clear, no unilateral weakness or loss of sensation, coordination intact Musculoskeletal: No joint inflammation, muscle tenderness, FROM Skin: No acute rashes or ulcers Extremities: No clubbing, cyanosis, edema Results & Data Vital Signs (Past 12 Hours) Vital Signs Temp Pulse Pulse Resp BP BP Pulse Ox 12/10/18 21:00 94 H 18 121/77 97 12/10/18 19:41 94 H 18 114/71 95 12/10/18 17:50 90 18 131/80 97 12/10/18 15:17 98.2 F 101 H 22 143/85 H 97 Diagnostic Findings EKG: NSR
[2018-12-10] MEDS ORDERED: OXYCODONE HCL IR 5 MG TAB (IMMEDIATE RELEASE) PO PRN (21:49)
[2018-12-10] MEDS ORDERED: MAGNESIUM HYDROXIDE SUSP 30 ML UDC PO PRN (21:49)
[2018-12-10] MEDS ORDERED: ALBUTEROL HFA 8 GM INHALER INH PRN (21:49)
[2018-12-10] MEDS ORDERED: PANTOprazole 40 MG TAB PO PRN (21:49)
[2018-12-10] MEDS ORDERED: ALUMINUM/MAGNESIUM SUSP 30 ML UDC PO PRN (21:49)
[2018-12-10] MEDS ORDERED: ACETAMINOPHEN 325 MG TAB PO PRN (21:49)
[2018-12-10] MEDS ORDERED: ONDANSETRON INJ 2 MG/ML 2 ML VIAL IV PRN (21:49)
[2018-12-10] MEDS ORDERED: MoRPHine SULFATE 2 MG/ML CARP IV PRN (21:49)
[2018-12-10] MEDS ORDERED: NITROGLYCERIN SL 0.4 MG/TAB TAB SL PRN (21:49)
[2018-12-10] MEDS ORDERED: ACETAMINOPHEN 500 MG TAB PO PRN (21:49)
[2018-12-10] MEDS ORDERED: POLYETHYLENE (MIRALAX) 17 GM PACK PO PRN (21:49)
[2018-12-10] MEDS ORDERED: ZOLPIDEM TARTRATE 5 MG TAB PO PRN (21:49)
--- NOTE | 2018-12-11 08:54 | Cardiology Consultation ---
Date of Consultation December 11, 2018 Assessment & Plan (1) Chest pain: The patient's chest pains are atypical for coronary disease. She has had an extended period of discomfort without any elevation in her cardiac biomarkers. Additionally, the nonexertional nature of her symptoms and the ch aracter of her symptoms described as pinching are uncharacteristic for coronary disease or an acute coronary syndrome. Nonetheless, she is in the process of undergoing a perfusion study and at this point we will simply wait for its result. She has never had an echocardiogram, but currently does not appear to have significant heart failure either right or left-sided. Her cardiac examination is normal today. Her EKG is normal. She is likely hyper aware of any symptoms in the chest given her recent pulmonary emboli. She may have some musculoskeletal discomfort. She may Lico have some inflammatory pain. In the absence of a significant perfusion abnormality under study today I would not recommend any additional cardiac evaluation. History of Present Illness Reason for Consultation: Chest pain Requesting Physician: Russel Attending Physician: Kaylynn Huber DO History of Present Illness The patient is a 48-year-old woman without a known history of cardiac disease who was diagnosed with bilateral pulmonary emboli in September of 2018. The patient had noticed the relatively acute onset of significant breathing difficulty. She felt that this may be an exacerbation of her asthma and was recently treated for bronchitis. However, her symptoms did not respond to standard treatment. She also had significant coughing and eventually developed right-sided chest di scomfort due to severe persistent coughing. Eventually she underwent CT scanning which diagnosed bilateral pulmonary emboli and a right leg DVT. She was placed on anticoagulant therapy and her symptoms have slowly improved. Initially she had a lot of chest heaviness especially when lying down. She slept in a recliner for period of time but the symptoms appear to have resolved. The right chest discomfort that she had initially also has improved significantly. Recently she began to develop a sense of heaviness in the left precordial area. This is not described as a pain but more as a soreness. It is present most of the time. Intermittently she will have pinching pains in the left precordium as well. The symptoms do not appear to be exertional. They are not worsened with exertion. The did not appear to be positional in nature. There is no pleuritic symptoms. Prior to developing or DVTs the patient reports a good level of activity. She works on the [employer] and walks with a backpack frequently. She has not report symptoms of limiting dyspnea or chest discomfort with that activity in general. Allergies Allergy/AdvReac Type Severity Reaction Status Date / Time seasonal Allergy Intermediate sneezing/itchy Uncoded 12/10/18 16:09 watery eyes Home Medications Home Medications Medication Instructions Recorded Confirmed Type albuterol sulfate 1 - 2 puff INHALATION Q4 PRN 10/08/18 12/10/18 History atorvastatin 20 mg PO DAILY 10/08/18 12/10/18 History ipratropium-albuterol 3 ml INHALATION Q4 PRN 10/08/18 12/10/18 History lisinopril 20 mg PO QAM 10/08/18 12/10/18 History promethazine-codeine 1 tsp PO HS PRN 10/08/18 12/10/18 History oxycodone 5 mg PO Q6 PRN #20 cap 10/09/18 12/10/18 Rx rivaroxaban [Xarelto] 20 mg PO DAILY #30 tab 10/09/18 12/10/18 Rx acetaminophen [Tylenol Extra 500 mg PO QID PRN 10/12/18 12/10/18 History Strength] cholecalciferol (vitamin D3) 5,000 unit PO QAM 10/12/18 12/10/18 History [Vitamin D3] omeprazole 20 mg PO BID PRN 12/10/18 12/10/18 History Patient History Medical History Asthma Bronchitis Varicose veins of both lower extremities Family History Other Blood clot in vein Social History Preferred Language: Yoruba Communication Ability: Effective Metallurgical Specialist Required: No Beliefs That Will Affect Care: None marital status: Current Living Situation: Family current occupational status: employed Other Information That Helps Us Care for You: No Feels Safe at Home: Yes Safety Concerns: Feels Safe At This Time Smoking Status: Unknown if ever smoked Hx Alcohol Use: No Hx Substance Use: No Review of Systems Review of Systems: All systems reviewed & are unremarkable except as noted in HPI & below She has occasional reflux. She has not had significant indigesti on recently. She feels that her right leg is still slightly swollen. She has not have discomfort in the right leg. She has some cramping in her left leg last night. No recent fevers or chills. Still occasional coughing with some pain in her throat. Physical Exam Physical Exam: She is alert and oriented x3. Mood affect appear normal. She answered all questions appropriately. HEENT: Sclerae are anicteric. Pupils are equal and reactive to light and accommodation. Extraocular movements were intact. Neuro: Cranial nerves intact Neck: Examination of the submandibular region did not reveal any significant lymphadenopathy. Carotids are palpable bilaterally and free of bruits on auscultation. There was no evidence of jugular venous distention. The thyroid was not enlarged. Lungs: Lungs are clear to auscultation bilaterally. There are no rales wheezes or rhonchi. She has normal respiratory effort without use of accessory muscles. There is normal pulmonary excursion. Cardiac: The rhythm was regular. S1 and S2 were normal. There are no murmurs on examination. The PMI was not markedly displaced on palpation. Abdomen: The abdomen was soft and nontender. Extremities: Patient has bilateral radial pulses that are equal in intensity. There is no evidence cyanosis or clubbing. There was no evidence of significant peripheral edema bilaterally. Skin: There are no rashes noted on examination today. Results & Data Vital Signs (Past 12 Hours) Vital Signs Temp Pulse Pulse Resp BP Pulse Ox 12/11/18 07:05 36.6 C 95 H 18 122/76 97 12/11/18 03:24 36.8 C 83 16 94/62 L 97 12/11/18 00:05 36.6 C 95 H 16 110/65 96 12/10/18 23:15 84 12/10/18 22:00 36.5 C 99 H 84 18 131/95 94 12/10/18 21:00 94 H 18 121/77 97 Laboratory Results Abnormal Lab Results 12/10/18 12/10/18 12/10/18 16:13 16:13 16:13 WBC 8.31 RBC 4.39 Hgb 13.5 Hct 39.6 MCV 90.2 MCH 30.8 MCHC 34.1 RDW Std Deviation 44.1 RDW Coeff of Ida 13.5 Plt Count 382 MPV 10.0 Immature Gran % (Auto) 0.2 Neut % (Auto) 52.0 Lymph % (Auto) 34.7 [place] % (Auto) 10.7 Eos % (Auto) 2.0 Baso % (Auto) 0.4 Immature Gran # (Auto) 0.02 Neut # (Auto) 4.32 Lymph # (Auto) 2.88 [place] # (Auto) 0.89 H Eos # (Auto) 0.17 Baso # (Auto) 0.03 PT 11.7 INR 1.2 H APTT 30.6 PTT Ratio 1.1 Sodium 137 Potassium 3.9 Chloride 105 Carbon Dioxide 26 Anion Gap 6.0 BUN 16 Creatinine 0.91 Est Cr Clr Drug Dosing 91.1 Est GFR ( Amer) 85.3 Est GFR (Non-Af Amer) 73.6 BUN/Creatinine Ratio 17.9 Glucose 127 H Calcium 8.8 Magnesium 2.0 Total Bilirubin 0.2 AST 30 ALT 87 H Alkaline Phosphatase 95 Troponin I < 0.015 Total Protein 7.2 Albumin 3.7 Globulin 3.5 Albumin/Globulin Ratio 1.1 Lipase 146 Specimen Hemolysis POC Ur Test 12/10/18 12/10/18 12/11/18 18:49 19:33 00:22 WBC RBC Hgb Hct MCV MCH MCHC RDW Std Deviation RDW Coeff of Ida Plt Count MPV Immature Gran % (Auto) Neut % (Auto) Lymph % (Auto) [place] % (Auto) Eos % (Auto) Baso % (Auto) Immature Gran # (Auto) Neut # (Auto) Lymph # (Auto) [place] # (Auto) Eos # (Auto) Baso # (Auto) PT INR APTT PTT Ratio Sodium Potassium Chloride Carbon Dioxide Anion Gap BUN Creatinine Est Cr Clr Drug Dosing Est GFR ( Amer) Est GFR (Non-Af Amer) BUN/Creatinine Ratio Glucose Calcium Magnesium Total Bilirubin AST ALT Alkaline Phosphatase Troponin I < 0.015 < 0.015 Total Protein Albumin Globulin Albumin/Globulin Ratio Lipase Specimen Hemolysis POC Ur Test NEG Diagnostic Findings CT scan performed last evening reveals resolving pulmonary emboli. ECG Additional Comments: Normal sinus rhythm. Normal EKG
[2018-12-11] MEDS ORDERED: ASPIRIN 81 MG ECTAB PO SCH (09:00)
[2018-12-11] MEDS ORDERED: ATORVASTATIN 20 MG TAB PO SCH (09:00)
[2018-12-11] MEDS ORDERED: LISINOPRIL 20 MG TAB PO SCH (09:00)
[2018-12-11] MEDS ORDERED: REGADENOSON 0.4 MG/5 ML SYR IV ONE (10:58)
--- NOTE | 2018-12-11 16:08 | Family Medicine Progress Note ---
Date of Service December 11, 2018 Subjective Aleksandra reports she feels well today and would like ot go home. She continues to have a little chest pain intermittently 'pinching' in quality which is not affected by palpation. Review of Systems Review of Systems: Constitutional: Denies fever, chills, malaise, weight change ENT: Denies ear pain, sore throat, sinus pain Cardiovascular: Endorses chest pain as noted in HPI. Denies chest pressure, palpitations, extremity swelling Respiratory: Denies shortness of breath, cough, sputum production, difficulty breathing Gastrointestinal: Endorses intermittent heartburn, otherwise denies abdominal pain, nausea, vomiting, constipation, diarrhea Musculoskeletal: Denies weakness, muscle aches/pain Integumentary:Denies rash, lesions, bruising Neurological: Denies lightheadedness/dizziness/fatigue Physical Exam Physical Exam: General: A&Ox3. NAD. Cooperative. HEENT: Atraumatic, normocephalic. Pulm: CTAB A&P. -wheezes, -rales, -rhonchi. Symmetrical chest rise. No increase work of breathing. No respiratory distress. Cardiac: RRR, -mrg. Radial pulses intact and symmetrical. CHest pain not reproduced/worsened with palpation. Abdominal: Nontender, nondistended, soft. BS present. Results & Data Vital Signs (Past 12 Hours) Vital Signs Temp Pulse Pulse Resp BP Pulse Ox 12/11/18 08:00 78 12/11/18 07:05 36.6 C 95 H 18 122/76 97 12/11/18 03:24 36.8 C 83 16 94/62 L 97 12/11/18 00:05 36.6 C 95 H 16 110/65 96 12/10/18 23:15 84
[2018-12-11] MEDS ORDERED: RIVAROXABAN 20 MG TAB PO SCH (17:00)
--- NOTE | 2018-12-11 17:31 | Myocardial Perfusion Study ---
Date of Service December 11, 2018 Myocardial Perfusion Study [facility] Myocardial Perfusion Study Report Procedure: 1. Myocardial perfusion study performed in multiple views/images 2. Lexiscan pharmacologic stress ECG Indications: 1. Chest pain Ordering physician: Dr. Goode Procedural details: For the stress portion of the study, Lexiscan 0.4 mg was intravenously administered followed by a saline flush. This was followed by 33.611 mCi of technetium 99m Cardiolite, injected at 11:06 a.m. on 12/11/2018. 30 minutes following the injection, imaging of the heart was performed in multiple projections. For the rest portion of the study, 10.6 mCi technetium 99m Cardiolite was injected intravenously at 9:30 a.m. on 12/11/2018. 1 hour following the injection, imaging of the heart was performed in the same projections. Lexiscan stress ECG: Resting ECG demonstrated: Sinus rhythm 90 bpm Maximum heart rate: 125 bpm Maximal, age-predicted heart rate: 73 % Resting blood pressure: 137/84 mmHg Maximum blood pressure: 145/[address] changes: None Arrhythmia: None Symptoms: Mild stomach cramps Findings: Rotating raw imaging demonstrated no significant lung uptake. There is no significant motion artifact. Heart size appeared normal. Myocardial perfusion demonstrated a very small area of very mildly reduced uptake involving the base to mid inferolateral wall which appeared reversible in rest imaging. There were no significant fixed defects to suggest infarct. Ejection fraction: 82 % Wall motion: Normal No significant transient ischemic dilation. Impression: 1. Possible very small area of mild ischemia involving the base to mid inferolateral wall. 2. Normal wall motion and hyperdynamic LV systolic function. EF 82%. 3. No chest pain. 4. Nondiagnostic Lexiscan ECG. 5. Dr. Ruffin (investigations consultant) was notified of above findings.
--- NOTE | 2018-12-11 17:50 | Discharge Summary ---
Date of Service December 11, 2018 Admission HPI Per Admitting Provider 48 y/o F Hx HTN, HLD, obese, glucose intolerance. Admitted with BL PEs 09/2018 following a plane flight. She presents with intermittent L CP for 3 days. Today the pain worsened, prompting her to visit the ER. She denies nausea, vomiting, diaphoresis, SOB above baseline or lightheadedness. The pain is nonradiating. Initial labs and EKG do not support acute ischemia. PMH: 1) HTN 2) HLD 3) Obese - BMI 38 4) Glucose intolerance 5) BL PEs 09/2018 Social: Does not drink or smoke Family: Parents are diabetic - no history of CAD Admission Exam Per Admitting Provider General: AAO x 3, no distress ENT: No erythema or exudates, no thrush Eyes: GISELLE, EOMI Head and neck: Normocephalic, atraumatic, No JVD, neck is supple. Chest/heart: Nontender, S1,2, RRR, no murmurs, no gallops Lungs: CTAB, no wheezing or crackles Abdomen: Nontender, nondistended, BS+ Neuro: AAO x 3, speech is clear, no unilateral weakness or loss of sensation, coordination intact Musculoskeletal: No joint inflammation, muscle tenderness, FROM Skin: No acute rashes or ulcers Extremities: No clubbing, cyanosis, edema Principal Diagnosis Noncardiac Chest Pain Discharge Exam General: A&Ox3. NAD. Cooperative. HEENT: Atraumatic, normocephalic. Pulm: CTAB A&P. -wheezes, -rales, -rhonchi. Symmetrical chest rise. No increase work of breathing. No respiratory distress. Cardiac: RRR, -mrg. Radial pulses intact and symmetrical. CHest pain not reproduced/worsened with palpation. Abdominal: Nontender, nondistended, soft. BS present. Discharge Data Allergies Allergy/AdvReac Type Severity Reaction Status Date / Time seasonal Allergy Intermediate sneezing/itchy Uncoded 12/10/18 16:09 watery eyes Consultations 12/10/18 20:35 ED Decision to Admit Stat 12/10/18 21:49 Consult Cardiology Routine Ordered Studies 12/10/18 16:00 CT angio chest PE protocol Stat Hospital Course (1) Chest pain: Aleksandra is a 48-year-old female with a past medical history of hypertension, hyperlipidemia, obesity, and a recent hospital admission for bilateral PEs 09/2018 following a plane flight on therapeutic anticoagulation who presented to the hospital with 3 days of intermittent left-sided chest pain. Chest pain She had been experiencing 3 days of intermittent chest pain not associated with nausea, vomiting, diaphoresis, or shortness of breath. She did not have any exercise association with her symptoms, but was concerned given her recent history of PE. EKG showed normal sinus rhythm without axis deviation or ST changes, and her troponins were negative x3. Given her history a nuclear stress test was performed and discussed with cardiology. While a small area of wall motion abnormality was noted this was felt to be mostly incidental, and highly unlikely to be related to her presentation. Her chest pain was felt to be noncardiac in origin, and she was discharged with follow-up to her PCP and for follow-up with cardiology in 1 month. This was discussed with the patient by cardiology. History of bilateral PEs She has a history of PEs following a flight as noted above on therapeutic anticoagulation with rivaroxaban 20 mg daily. This was continued during admission. CTA showed improving emboli with resolution of her left lower lobe central changes and minimal changes remaining in the right lower lobe and lower left lobe. There was no worsening of her PEs, and her pain was not felt to be pleuritic or related to her PEs. Hyperlipidemia Her atorvastatin 20 mg was continued during admission Hypertension Her lisinopril 20 mg was continued during admission. Her blood pressure was under adequate control both during admission and at discharge. (2) DVT (deep venous thrombosis): (3) Bilateral pulmonary embolism: Total Time Total Time Spent Total Time Spent (In Minutes): 30 Discharge Plan Discharge Items Patient Disposition: Home - Self-Care Reason For Visit: CHEST PAIN Discharge Diagnosis: Noncardiac Chest Pain Condition: Good Discharge Goals: Decrease discomfort Activity: Resume your previous activity Non-emergency contact: Primary Care Provider and Panel Sewer Call non-emergency contact if: you have any medication questions, your symptoms worsen, your pain is not controlled, your pain is worsening, your pain is unusual for you and your pain is concerning for you Follow-up/Referrals: Smita Winslow CRNP [Primary Care Provider] - Diet: Regular Addtl Provider Instructions: You were seen in the hospital for chest pain. Your blood work did not show any signs of heart damage. You had a stress test which was discussed with cardiology, and it was felt that your pain was not cardiac in origin. He will have follow-up with your primary care doctor in 1 week, and with cardiology in about 1 month. You have not been prescribed any new medications. An appointment is being scheduled for you with your primary care provider Smita Winslow. You should receive a call to confirm this appointment within 48 hours. If you do not receive a call please call her office at [phone] for an appointment within the next week. An appointment is being scheduled for you for follow-up with cardiology. You were seen by Dr. Ruffin during admission. He should have a follow-up appointment approximately 1 month. You should receive a call confirming this appointment. If you do not receive a call please call their office at [phone]. If you develop any new or worsening symptoms including chest pain, shortness of breath, fever, chills, lightheadedness, dizziness, or you pass out please call your primary care doctor, or all 911 to go to the emergency department if you are very concerned. Prescriptions: Continued atorvastatin 20 mg tablet 20 mg PO DAILY RF: 0 ipratropium-albuterol 0.5 mg-3 mg(2.5 mg base)/3 mL solution for nebulization 3 ml Inhalation Q4 PRN (Reason: Shortness Of Breath) RF: 0 lisinopril 20 mg tablet 20 mg PO QAM RF: 0 promethazine-codeine 6.25-10 mg/5 mL Syrup 1 tsp PO HS PRN (Reason: Cough) RF: 0 albuterol sulfate 90 mcg/actuation HFA aerosol inhaler 1 - 2 puff Inhalation Q4 PRN (Reason: Shortness Of Breath) RF: 0 Xarelto 20 mg tablet 20 mg PO DAILY Qty: 30 RF: 3 oxycodone 5 mg capsule 5 mg PO Q6 PRN (Reason: pain) Qty: 20 RF: 0 acetaminophen [Tylenol Extra Strength] 500 mg Tablet 500 mg PO QID PRN (Reason: Pain) RF: 0 cholecalciferol (vitamin D3) [Vitamin D3] 5,000 unit Tablet 5,000 unit PO QAM RF: 0 omeprazole 20 mg capsule,delayed release(DR/EC) 20 mg PO BID PRN (Reason: Stomach Upset) RF: 0 Stand-Alone Forms: Call Back Authorization, [facility] Discharge Orders: Discharge Order (Routine); Ordered 12/11/18 Ordered By: Shalom Lyn Admission Data Admit Date/Time: 12/10/18 21:07 Attending Provider: Kaylynn Huber Admit Provider: Lai Goode Primary Care Provider: Smita Winslow Other Providers: Lai Goode ; Mario Singh Service: Telemetry Other Interventions: Discharge Summary Assessment (RN) Last Done: 12/11/18 17:54 DC Date/Time DO NOT enter until pt leaves facility: 12/11/18 18:30 Supervising Physician Co-Signing Physician Notes Patient seen and examined seen with Dr. Lyn. Agree with history, exam findings, assessment and plan of care as outlined. 48 year old female with hx of HTN, HLD, obesity, glucose intolerance, hx of recent bilateral PE September 2018) with left sided CP x 3 days. 1. Chest pain. Intermediate risk. CTA on admission with no new PE. EKG on admission without new ST or T wave changes. Trops negative x 3. Stress test today not concerning for ischemic heart disease. ASA, atorvastatin. 2. Hx of bilateral PE. On xarelto. 3. HTN, HLD. Lisinopril, atorvastatin. 4. Hx of GERD, on omeprazole at home, using PRN. Discussed using h2 mariangel regularly. Dipso: Discharge home today. Follow up with PCP next week. I personally spent 34 minutes discharge planning for this patient.
== END 2018-12-11 18:30 | disposition home or self-care (01) ==
LOC: ED 15:14 → 2E 15:14 → SUATTDRO 21:07 → 2E 21:29

== ENCOUNTER 2019-07-09 07:51 | Inpatient (IN) ==
--- NOTE | 2019-06-11 15:16 | PAT Medication Instructions ---
Medication Instructions Date of Service June 11, 2019 Home Medications Medication Instructions Recorded lisinopril 20 mg tablet 20 mg PO QAM #30 tab 02/22/19 cyclobenzaprine 10 mg tablet 10 mg PO TID PRN #30 tab 03/05/19 albuterol sulfate 1 - 2 puff INHALATION Q4 PRN cholecalciferol (vitamin D3) 5,000 unit PO QAM lisinopril 20 mg tablet 20 mg PO QAM cyclobenzaprine 10 mg tablet 10 mg PO TID PRN atorvastatin 20 mg PO QAM levothyroxine 100 mcg PO QAM rivaroxaban [Xarelto] 20 mg PO QAM ASK your prescriber and surgeon rivaroxaban [Xarelto] 20 mg PO QAM *MUST BE HELD FOR AT LEAST 72 HOURS PRIOR TO SURGERY FOR SPINAL ANESTHESIA* DO NOT take the morning of surgery cholecalciferol (vitamin D3) 5,000 unit PO QAM lisinopril 20 mg tablet 20 mg PO QAM cyclobenzaprine 10 mg tablet 10 mg PO TID PRN Take morning of surgery With a small sip of water, OTHERWISE NOTHING TO EAT OR DRINK AFTER MIDNIGHT: albuterol sulfate 1 - 2 puff INHALATION Q4 PRN (if needed, and bring with you to the hospital) atorvastatin 20 mg PO QAM levothyroxine 100 mcg PO QAM Take evening before surgery albuterol sulfate 1 - 2 puff INHALATION Q4 PRN (if needed) cyclobenzaprine 10 mg tablet 10 mg PO TID PRN (if needed) Other Notes If you have any questions please call us at [phone] or [phone] or [phone] or [phone]
--- NOTE | 2019-06-14 14:27 | Anesthesiology Consultation ---
Date of Service June 14, 2019 Assessment & Plan (1) Encounter for pre-operative examination: CHECK TEST AM DOS. Chart Review Chart Review: Acceptable Risk for Surgery and Patient seen in Pre Admission Testing Teaching & Discussion Instructed NPO after midnight before surgery, except medications with 15 cc of water. Medication instructions provided according to the PAT guidelines. History Surgery Operation Date: 07/09/19 08:50 Proposed Procedures p Left Total Knee Arthroplasty Versus - Carlos Claros MD s Partial Knee Replacement - Carlos Claros MD Height/Weight Height: 5 ft 6 in Weight: 108.5 kg Allergies Allergy/AdvReac Type Severity Reaction Status Date / Time No Known Drug Allergies AdvReac Unknown Verified 06/14/19 12:42 seasonal Allergy Intermediate sneezing/itchy Uncoded 06/14/19 12:42 watery eyes Medications Home Medications Medication Instructions Recorded Confirmed Last Taken albuterol sulfate 1 - 2 puff INHALATION Q4 PRN 10/08/18 06/14/19 Unknown cholecalciferol (vitamin D3) 5,000 unit PO QAM 10/12/18 06/14/19 12/27/18 [Vitamin D3] lisinopril 20 mg tablet 20 mg PO QAM #30 tab 02/22/19 06/14/19 Unknown cyclobenzaprine 10 mg tablet 10 mg PO TID PRN #30 tab 03/05/19 06/14/19 Unknown atorvastatin 20 mg PO QAM 06/08/19 06/14/19 Unknown levothyroxine 100 mcg PO QAM 06/08/19 06/14/19 Unknown rivaroxaban [Xarelto] 20 mg PO QAM 06/08/19 06/14/19 Unknown loratadine 10 mg tablet 10 mg PO DAILY 06/14/19 06/14/19 Unknown magnesium 30 mg tablet 30 mg PO DAILY 06/14/19 06/14/19 Unknown Past Medical History Medical History Abnormal coagulation profile (Chronic) Anxiety Asthma RARELY USES PRN INH DVT (deep venous thrombosis) 09/2018 RLE - ON XARELTO - POSSIBLY R/T TRAVEL PER PT REPORT History of colon polyps History of kidney stones History of pulmonary embolism 09/2018 - ON XARELTO Hypercholesterolemia (Chronic) Hypertension (Chronic) Hypothyroidism Osteoarthritis Exercise / Class Metabolic Activity II 4-5 Yardwork/Stairs/Walk up hill (Some mild SOB, no CP with stairs, does daily at home and work.) Past Family History Family History Father Family history of diabetes mellitus Sister Family history of diabetes mellitus Other Blood clot in vein Past Surgical History Surgical History History of bilateral knee arthroplasty History of colonoscopy History of laparoscopy History of root canal procedure History of tooth extraction History of vein stripping Nausea and vomiting after administration of anesthetic agent Past Anesthesia History No Hx of Anesthesia Complications (other than PONV) and No Family Hx of Anesthesia Complications History of PONV History of PONV and Hx of Motion Sickness Social History Smoking Status: Never smoker Do You Dip or Chew Tobacco: No Hx Alcohol Use: Yes Alcohol type: wine (rarely) Hx Substance Use: No substance use type: does not use Review of Systems Pt denies any recent chest pain, shortness of breath, palpitations, cough, fever or URI. Physical Exam Vital Signs BP: 119/85 P: 101bpm SPO2: 96% RA T: 98.5 F R: 18 ENMT Mouth: + dental restorations (crowns); no chipped teeth and no loose teeth Thyromental Distance: < 3.5 Finger Breadths (2) Mallampati Class: III Neck normal visual inspection; neck extension not limited Respiratory normal respiratory effort Auscultation: lungs clear to auscultation bilaterally Cardiovascular Rate/Rhythm: regular rhythm and + tachycardic Heart Sounds: no murmur Vessels: no carotid bruit Extremities: no edema Testing Laboratory Results 06/14/19 14:35 06/14/19 14:35 PT 13.6 Seconds (9.0-12.0) H 06/14/19 14:35 INR 1.4 (0.9-1.1) H 06/14/19 14:35 APTT 31.6 Seconds (21.0-31.0) H 06/14/19 14:35 Blood Type A Negative 06/14/19 14:35 Antibody Screen NEGATIVE 06/14/19 14:35 Electrocardiogram Date: 12/28/18 Findings: + ST @ (106bpm) Low voltage QRS. Cannot r/o inferior infarct. No significant change from 12/10/18. Chest X-Ray Date: 12/28/18 Findings: + NAD
[2019-06-14 15:12] LABS: Basophils # (auto) 0.03 K/uL (0-0.2); Basophils % (auto) 0.3 %; Eosinophils # (auto) 0.07 K/uL (0-0.5); Eosinophils % (auto) 0.8 %; Hematocrit (blood only) 41.4 % (37-47); Hemoglobin 13.9 g/dL (12.0-16.0); Immature Granulocytes # (auto) 0.02 K/uL (0.00-0.02); Immature Granulocytes % (auto) 0.2 %; Lymphocytes # (auto) 3.08 K/uL (1.2-3.4); Lymphocytes % (auto) 33.3 %; Mean Corpuscular Hgb Conc 33.6 g/dL (32-36); Mean Corpuscular Volume 92.2 fL (80-100); Monocytes # (auto) 0.82 K/uL (0.11-0.59); Monocytes % (auto) 8.9 %; Neutrophils # (auto) 5.22 K/uL (1.4-6.5); Neutrophils % (auto) 56.5 %; Platelet Count 412 K/uL (130-400); RDW Coefficient of Variation 13.6 % (11.5-14.5); RDW Standard Deviation 45.7 fL (36.4-46.3); Red Blood Count 4.49 M/uL (4.2-5.4); White Blood Count 9.24 K/uL (4.8-10.8)
[2019-06-14 15:21] LABS: BUN Creatinine Ratio 15.3 (10-20); Calcium 9.6 mg/dl (8.5-10.1); Creatinine Clr Calc Pharmacy 79.9 ml/min; Est GFR (African American) 71.7; Est GFR (Non-African American) 61.9; Potassium 3.8 mmol/L (3.5-5.1)
[2019-06-14 15:34] LABS: INR 1.4 (0.9-1.1); Partial Thromboplastin Ratio 1.2; Partial Thromboplastin Time 31.6 Seconds (21.0-31.0); Prothrombin Time 13.6 Seconds (9.0-12.0)
[~2019-07-09 07:51] MED LIST changes: +ACETAMINOPHEN 500 MG TAB PO SCH; -ASCAUNK; +BUPIVACAINE 0.25% 30 ML VIAL ONE; +BUPIVACAINE 0.5 % 5 MG/1 ML PF 10ML VIAL ONE; +BUPIVACAINE LIPOSOME/PF 266 MG, BUPIVACAINE/EPINEPHRINE 50 ML, SODIUM CHLORIDE 0.9% 30 ... INFIL SCH; +CEFAZOLIN 2000MG 2,000 MG/15 ML SYR IV SCH; +FAMOTIDINE 20 MG TAB PO SCH; +GABAPENTIN 900 MG DOSE PO SCH; +LR 500ML BOLUS, THEN 15ML/HR IV SCH; +LR 60ML/HR IV SCH; +METOCLOPRAMIDE HCL 10 MG TABLET PO SCH; -MULTTAB58 PO; +SCOPOLAMINE 1.5 MG TDSY TD SCH; +TRANEXAMIC ACID 1,000 MG **IV Intra-op IV SCH
[2019-07-09 09:02] LABS: Partial Thromboplastin Ratio 0.9; Partial Thromboplastin Time 25.6 Seconds (21.0-31.0); Prothrombin Time 9.9 Seconds (9.0-12.0)
--- NOTE | 2019-07-09 09:08 | History & Physical Bridge Note ---
Date of Service July 09, 2019 History & Physical Bridge Note I have examined the patient, reviewed the History & Physical and in the interval since the performance of the History & Physical I have noted the following changes of clinical significance: no changes noted
[2019-07-09] MEDS ORDERED: TRANEXAMIC ACID / 0.7% NACL 1000MG/100ML BAG IV ONE (09:58)
[2019-07-09] MEDS ORDERED: PROPOFOL IV EMULSION 10 MG/ML 20 ML VIAL IV ONE (10:26)
[2019-07-09] MEDS ORDERED: LIDOCAINE HCL 2% 2 ML VIAL/AMP(20MG/ML) INFIL ONE (10:26)
[2019-07-09] MEDS ORDERED: fentaNYL citrate 100 MCG/2 ML VIAL ONE ×2 (10:27→13:33)
[2019-07-09] MEDS ORDERED: MIDAZOLAM HCL 1 MG/ML 2ML VIAL ONE ×2 (10:27→11:49)
[2019-07-09] MEDS ORDERED: BUPIVACAINE/EPINEPHRINE 0.25% 1:200,000 30 ML VIAL ONE (11:13)
[2019-07-09] MEDS ORDERED: BACITRACIN INJ 50,000 UNIT VIAL ONE (11:14)
[2019-07-09] MEDS ORDERED: SODIUM CHLORIDE 0.9% PF 50 ML VIAL ONE (11:14)
[2019-07-09] MEDS ORDERED: BUPIVACAINE LIPOSOME 1.3% 266 MG/20 ML VIAL ONE (11:14)
[2019-07-09] MEDS ORDERED: BUPIVACAINE 0.25% 30 ML VIAL ONE (11:21)
[2019-07-09] MEDS ORDERED: EPINEPHrine INJ 1 MG/ML AMP ONE (11:21)
[2019-07-09] MEDS ORDERED: PHENYLEPHRINE 100MCG/ML 5ML SYR ONE (12:07)
[2019-07-09] MEDS ORDERED: ATROPINE SULFATE 0.1 MG/ML 10ML SYR IV PRN (12:25)
[2019-07-09] MEDS ORDERED: ePHEDrine sulfate 50 MG/ML AMP IV PRN (12:25)
[2019-07-09] MEDS ORDERED: ePHEDrine sulfate 50 MG/ML SYR ONE (12:52)
[2019-07-09] MEDS ORDERED: ONDANSETRON INJ 2 MG/ML 2 ML VIAL ONE (12:52)
[2019-07-09] MEDS ORDERED: SODIUM CHLORIDE 0.9% INJ 10 ML VIAL ONE (13:08)
[2019-07-09] MEDS ORDERED: PHENYLEPHRINE HCL 10 MG/ML VIAL ONE (13:08)
--- NOTE | 2019-07-09 13:19 | Post Operative Brief Note ---
PG Immediate Post Op with CF Date of Surgery July 09, 2019 Pre & Post Diagnosis Operation Date: 07/09/19 10:40 Pre-Op Diagnosis: Left Knee Advanced Degenerative Joint Disease Post-Op Diagnosis: Left Knee Advanced Degenerative Joint Disease I identified the patient and participated in the time-out.: Yes Procedure Operation Date: 07/09/19 10:40 Actual Procedures p Left Total Knee Arthroplasty (Left) - Carlos Claros MD Surgeon Carlos Claros MD Food Service Aide Marcelo, PAC Estimated Blood Loss 50 Findings Consistent with Post-Op Diagnosis Fluids 1100 cc Specimens Specimen Description: A. Left Knee Bone and Tissue Drains Dixon Catheter (A 16 Yoruba dixon catheter was inserted by HANNA Wilson, without difficulty, clear yellow urine obtained, output to be monitored by Anesthesia.) Anesthesia Type Spinal MAC Complications none Disposition Accompanied Patient To Recovery: No Disposition: Recovery Room
[2019-07-09] MEDS: fentaNYL citrate 100 MCG/2 ML VIAL IV PRN ×2 (13:34→13:43)
--- NOTE | 2019-07-09 13:51 | Operative Report ---
Post Operative Report Pre & Post Diagnosis Operation Date: 07/09/19 10:40 Pre-Op Diagnosis: Left Knee Advanced Degenerative Joint Disease Post-Op Diagnosis: Left Knee Advanced Degenerative Joint Disease I identified the patient and participated in the time-out.: Yes Procedure Operation Date: 07/09/19 10:40 Actual Procedures p Left Total Knee Arthroplasty (Left) - Carlos Claros MD Surgeon Carlos Claros MD Brand Director Marcelo, PAC Estimated Blood Loss 50 Findings Consistent with Post-Op Diagnosis Operative findings revealed advanced left knee DJD with extensive grade 4 [id number] disease of the medial femoral condyle medial tibial plateau with eburnation on both surfaces. She had a varus deformity to her knee. A moderate to large knee joint effusion. Some mild synovitis. She had osteophytes off the medial femoral condyle medial tibial plateau. Fluids 1100 cc Specimens Left knee sent for pathology. Drains None. Anesthesia Type Spinal MAC Complications none Disposition Accompanied Patient To Recovery: No Disposition: Recovery Room Indications Patient is a 48-year-old female has a long history of bilateral knee pain discomfort left side greater than right. She been through extensive conservative treatment including various injections as well as oral medicines which became less successful over time. X-rays show progressive left knee arthritis. She elected proceed with left total knee arthroplasty. Description of Procedure Operative implants consist of: 1. Biomet Vanguard size 62.5 left posterior box femoral component. 2. Biomet size 67 tibial tray. 3. 10 mm posterior box polyethylene insert. 4. 28 x 8 all poly-patella. Patient was taken to the operating room identified and placed on the operating table supine position protectors were properly padded. IV antibiotics were provided by the anesthesia team. Left thigh tourniquet was then placed. Mo catheter was placed in sterile fashion. The left lower extremities and prepped and draped in usual sterile fashion. Left leg was elevated and exsanguinated with use of an Esmarch and turns placed at 300 mmHg. An anterior approach left knee was then performed to longitudinal incision centered over the patella. Sharp dissection was cut through subcutaneous tissue down below the extensor mechanism. A medial parapatellar arthrotomy incision was made. Some subperiosteal dissection was carried out medially. The fat pad was resected from each patella tendon. Lateral patellofemoral ligament was released. Patella was subluxated laterally and the knee was flexed. The osteophytes were taken off the distal femur. The ACL and PCL were then released in the distal femur and the tibia subluxated anteriorly. The external tibial alignment jig was then placed in the interface of the tibia and adjusted 14 mm medially. Proximal tibial cut was made with a about a millimeter of bone taken from the most efficient aspect medial tibial plateau. Some osteophytes taken off medial and posterior medially. Tibia sized to size 67. Attention drawn to the femur. New para the distal femurs and with a sharp drop with intramedullary canal was suction. A left 5 degree valgus cutting guide was placed. Distal femoral cutting block was pinned in place. Distal femoral cut was made to take an additional 3 mm of bone off distal femur. The femur was then sized to a size 62.5. Did downsize a slightly. The AP cutting block was pinned parallel to the epicondylar axis which was 5 degrees of external rotation with anterior cut, anterior chamfer, posterior cut, posterior chamfer cuts were made. Box cutting guide was placed and just slightly lateral and the box cut was made. The knee was flexed. The remnants of medial lateral menisci were excised. The osteophytes were taken off the posterior aspect of the femur. A trial femoral component was placed. The tibial tray was pinned in maximum external rotation and drill and stem punch were used to create defect in proximal tib-fib tibial tray. The knee was then trialed the 10 mm insert fit most appropriately. Attention drawn the patella. The patella was cleaned of all soft tissues. Patella thickness measured 21 mm in thickness and was cut down to 13. Was sized to a size 28 patella. Locals were drilled for the 28 patella. Lateral osteophyte was removed. Patella button was placed. Knee was taken through range of motion patella tracked nicely with no thumbs test. Attention then drawn toward placing the permanent components. All trial components were removed. Bone plug was placed into the disc femur limit blood loss put a double batch [place] G cement was mixed. Biomet Vanguard size 62.5 left posterior bifemoral component, a size 67 tibial tray, a 10 mm posterior box polyethylene insert, and a 28 x 8 all poly-patella were then cemented in place. Knees brought in full extension total cement hardened. Final cement check was then performed. Pericapsular tissues were injected with total of 100 cc of current mentation of 20 cc of Exparel, 30 cc of normal saline for the cc of quarter percent Marcaine with epinephrine. Patient did receive 1 g of tranexamic acid. The tourniquet was let down for turn time 58 minutes. Hemostasis assured use electrocautery. Extensor mechanism then closed with combination 1 PDS suture #1 Vicryl suture in supnis-vy-ehvvl fashion. Extensor mechanism checked found to be intact with subcutaneous tissue then closed with 2 Dexon suture in a buried fashion skin was closed skin ramya. Leg was then cleaned dried a sterile dressing composed of Xeroform, 4 x 4's, sterile cast padding Lico bandage were applied. Patient was then transferred to the recovery room in stable condition. Patient tolerated procedure well and there were no complications. I attest to the content of the Intraoperative Record and any orders documented therein. Any exceptions are noted below.
--- NOTE | 2019-07-09 14:11 | Anesthesiology Progress Note ---
Date of Service July 09, 2019 Anesthesia Post Procedure Vital Signs Vital Signs: Temp Pulse Pulse Resp BP Pulse Ox 07/09/19 14:00 36.6 C 88 15 106/66 96 07/09/19 13:50 101 H 16 117/74 98 07/09/19 13:40 107 H 14 106/64 97 07/09/19 13:30 112 H 18 115/61 98 07/09/19 13:24 37.1 C 113 H 12 101/68 99 07/09/19 09:25 36.8 C 100 H 18 153/96 H 96 Pain Intensity Left Knee: Pain Intensity: 2 Transfer of Care Handoff Completed per policy Notes Mental Status: alert / awake / arousable and participated in evaluation Nausea / Vomiting: adequately controlled Pain: adequately controlled Airway Patency, RR, SpO2: stable & adequate BP & HR: stable & adequate Hydration State: stable & adequate Neuraxial Anesthesia: was administered and sensory block is resolving Anesthetic Complications: no major complications apparent and Pt Satisfied with anesthetic care
--- NOTE | 2019-07-09 14:11 | XRay Report ---
LEFT KNEE 2 VIEWS History: Left total knee arthroplasty. Degenerative arthritis. Postop. FINDINGS: The patient is status post a left total knee arthroplasty. The hardware is intact. No fract ure or dislocation. Skin ramya and surgical drains are in place. IMPRESSION: Left total knee arthroplasty. No evidence for hardware complication. ACT 112: Negative or not required by law. Electronically signed by: Bryan Reyes M.D. 07/09/2019 2:10 PM
[2019-07-09] MEDS ORDERED: METOCLOPRAMIDE HCL INJ 5 MG/ML 2 ML VIAL IV PRN (14:36)
[2019-07-09] MEDS ORDERED: bisacodyL 10 MG SUPP PR PRN (14:36)
[2019-07-09] MEDS ORDERED: ALBUTEROL HFA 8 GM INHALER INH PRN (14:36)
[2019-07-09] MEDS ORDERED: NALOXONE HCL 0.4 MG/1 ML VIAL/CARP IV PRN (14:36)
[2019-07-09] MEDS ORDERED: MAGNESIUM HYDROXIDE SUSP 30 ML UDC PO PRN (14:36)
[2019-07-09] MEDS ORDERED: ALUMINUM/MAGNESIUM SUSP 30 ML UDC PO PRN (14:36)
[2019-07-09] MEDS ORDERED: CYCLOBENZAPRINE HCL 10 MG TAB PO PRN (14:53)
[2019-07-09] MEDS ORDERED: PANTOprazole 40 MG TAB PO PRN (14:55)
[2019-07-09] MEDS: HYDROmorphone INJ 0.5 MG/0.5 ML SYR IV PRN (15:13)
[2019-07-09] MEDS: ONDANSETRON INJ 2 MG/ML 2 ML VIAL IV PRN (15:13)
[2019-07-09] MEDS: ACETAMINOPHEN 500 MG TAB PO SCH ×2 (15:15→21:57)
[2019-07-09] MEDS: CHECK SCOPOLAMINE PATCH PLACEMENT SCH ×2 (15:47→23:53)
[2019-07-09] MEDS: OXYCODONE HCL IR 5 MG TAB (IMMEDIATE RELEASE) PO PRN (16:49)
[2019-07-09] MEDS: ASCORBIC ACID 500 MG TAB PO SCH (16:51)
[2019-07-09] MEDS: FERROUS GLUCONATE 324 MG TAB PO SCH (16:51)
[2019-07-09] MEDS: KETOROLAC 30 MG/ML VIAL IV SCH ×2 (16:52→23:52)
[2019-07-09] MEDS: CEFAZOLIN 2000MG 2,000 MG/15 ML SYR IV SCH (19:39)
[2019-07-09] MEDS: SODIUM CHLORIDE 0.9% 1000ML 1,000 ML IV SCH (21:39)
[2019-07-09] MEDS: SENNA 8.6 MG TAB PO SCH (21:56)
[2019-07-09] MEDS: FLUTICASONE HFA 110MCG INHALER INH SCH (21:58)
[2019-07-09] MEDS: DOCUSATE SODIUM 100 MG CAP PO SCH (21:58)
[2019-07-09] MEDS: KETOCONAZOLE 2% CR 15 GM TUBE EXT SCH (21:59)
[2019-07-09] MEDS: TAPENTADOL HCL ER 50 MG TABCR PO SCH (22:03)
[2019-07-10] MEDS: SODIUM CHLORIDE 0.9% 1000ML 1,000 ML IV SCH (03:58)
[2019-07-10] MEDS: CEFAZOLIN 2000MG 2,000 MG/15 ML SYR IV SCH (04:45)
[2019-07-10] MEDS: LEVOTHYROXINE SODIUM 100 MCG TABLET PO SCH (05:38)
[2019-07-10] MEDS: ACETAMINOPHEN 500 MG TAB PO SCH ×3 (05:38→20:55)
[2019-07-10] MEDS: KETOROLAC 30 MG/ML VIAL IV SCH ×2 (05:39→12:29)
[2019-07-10 06:45] LABS: Hematocrit (blood only) 35.4 % (37-47); Hemoglobin 11.9 g/dL (12.0-16.0); Mean Corpuscular Hemoglobin 30.4 pg (25-34); Mean Corpuscular Hgb Conc 33.6 g/dL (32-36); Mean Corpuscular Volume 90.3 fL (80-100); Mean Platelet Volume 9.6 fL (7.4-10.4); Platelet Count 311 K/uL (130-400); RDW Coefficient of Variation 13.2 % (11.5-14.5); RDW Standard Deviation 43.4 fL (36.4-46.3); Red Blood Count 3.92 M/uL (4.2-5.4); White Blood Count 7.63 K/uL (4.8-10.8)
[2019-07-10 07:11] LABS: BUN Creatinine Ratio 14.4 (10-20); Calcium 8.2 mg/dl (8.5-10.1); Creatinine Clr Calc Pharmacy 95.1 ml/min; Est GFR (African American) 88.8; Est GFR (Non-African American) 76.6; Potassium 3.9 mmol/L (3.5-5.1)
[2019-07-10] MEDS: MULTIVITAMIN TAB PO SCH ×2 (07:33→09:04)
--- NOTE | 2019-07-10 08:08 | Progress Note ---
DATE: 07/10/2019 SUBJECTIVE: A 48-year-old female postop day 1 from left knee replacement. She is doing pretty well. Having some pain but responds to the pain medicines. No chest pain or shortness of breath. Not feeling dizzy or lightheaded. No nausea. OBJECTIVE: VITAL SIGNS: Temperature 36.9. Vital signs stable. GENERAL: Shows a pleasant, middle-aged female. She is sitting up in bed and doing heel prop currently. Looks reasonably comfortable. LUNGS: Clear to auscultation. HEART: Has a regular rate and rhythm. ABDOMEN: Soft, nontender, nondistended. EXTREMITIES: Grossly neurovascularly intact except as follows: Examination of the left lower extremity reveals the leg to be well aligned. She is getting her leg fully straight. Dressing is clean, dry and intact. She can dorsiflex and plantarflex her foot appropriately. She is neurologically intact. LABORATORY DATA: Hemoglobin is 11.9. Hematocrit 35.4. Electrolytes are stable. ASSESSMENT: A 48-year-old female postop day 1 from a left knee replacement, doing well. Does have a history of a DVT and PE in the past and on chronic anticoagulation. Pain has been controlled. She is neurologically intact. PLAN: 1. DVT prophylaxis including thigh-high TEDs, SCDs, and we will start her on prophylactic dose of Xarelto today. We will increase that to a full dose on discharge. 2. PT/OT. Weight bear as tolerated. Left total knee protocol. 3. Pain control, doing pretty well with current pain regimen. 4. Disposition: Plan to discharge to home with some home health once medically stable and adequately recovered and does okay in therapy.
[2019-07-10] MEDS: ASCORBIC ACID 500 MG TAB PO SCH ×2 (09:04→17:03)
[2019-07-10] MEDS: ATORVASTATIN 20 MG TAB PO SCH (09:04)
[2019-07-10] MEDS: MAGNESIUM OXIDE 400 MG TAB PO SCH (09:04)
[2019-07-10] MEDS: FERROUS GLUCONATE 324 MG TAB PO SCH ×2 (09:04→17:03)
[2019-07-10] MEDS: TAPENTADOL HCL ER 50 MG TABCR PO SCH ×2 (09:04→20:54)
[2019-07-10] MEDS: CHOLECALCIFEROL 1,000 UNITS TAB PO SCH (09:05)
[2019-07-10] MEDS: ZINC SULFATE 220 MG CAPSULE PO SCH (09:05)
[2019-07-10] MEDS: LORATADINE 10 MG TAB PO SCH (09:06)
[2019-07-10] MEDS: DOCUSATE SODIUM 100 MG CAP PO SCH ×2 (09:06→20:56)
[2019-07-10] MEDS: FLUTICASONE PROPIONATE NA SPR 16 GM BTL NAE SCH (09:06)
[2019-07-10] MEDS: lisinopriL 20 MG TAB PO SCH (09:06)
[2019-07-10] MEDS: FLUTICASONE HFA 110MCG INHALER INH SCH ×2 (09:07→20:56)
[2019-07-10] MEDS: KETOCONAZOLE 2% CR 15 GM TUBE EXT SCH ×2 (09:07→20:56)
[2019-07-10] MEDS: HYDROmorphone INJ 0.5 MG/0.5 ML SYR IV PRN (09:14)
[2019-07-10] MEDS: ONDANSETRON INJ 2 MG/ML 2 ML VIAL IV PRN (09:20)
[2019-07-10] MEDS: OXYCODONE HCL IR 5 MG TAB (IMMEDIATE RELEASE) PO PRN ×2 (12:37→17:50)
[2019-07-10] MEDS: RIVAROXABAN 10 MG TABLET PO SCH (13:34)
--- NOTE | 2019-07-10 16:08 | Anesthesiology Progress Note ---
Date of Service July 10, 2019 Anesthesia Post Procedure Vital Signs Vital Signs: Temp Pulse Resp BP Pulse Ox 07/10/19 15:30 36.4 C L 109 H 17 118/73 94 07/10/19 12:15 36.8 C 91 H 16 121/81 95 07/10/19 07:17 36.9 C 103 H 16 137/86 96 07/10/19 02:26 36.4 C L 92 H 16 138/86 95 07/09/19 23:50 36.7 C 96 H 16 113/76 96 07/09/19 19:24 36.6 C 118 H 16 172/92 H 96 07/09/19 17:37 37.0 C 89 16 153/86 H 99 07/09/19 16:38 36.5 C 96 H 16 141/89 H 100 Pain Intensity Left Knee: Pain Intensity: 2 Transfer of Care Handoff Completed per policy Notes Mental Status: alert / awake / arousable and participated in evaluation Patient Amnestic to Procedure: Yes Nausea / Vomiting: adequately controlled Pain: adequately controlled Airway Patency, RR, SpO2: stable & adequate BP & HR: stable & adequate Hydration State: stable & adequate Anesthetic Complications: no major complications apparent
[2019-07-10] MEDS: SENNA 8.6 MG TAB PO SCH (20:55)
[2019-07-10 23:33] VITALS: O2SAT 93
[2019-07-11] MEDS: OXYCODONE HCL IR 5 MG TAB (IMMEDIATE RELEASE) PO PRN ×3 (00:49→12:37)
[2019-07-11] MEDS: LEVOTHYROXINE SODIUM 100 MCG TABLET PO SCH (05:23)
[2019-07-11] MEDS: ACETAMINOPHEN 500 MG TAB PO SCH (05:23)
[2019-07-11] MEDS: ONDANSETRON INJ 2 MG/ML 2 ML VIAL IV PRN ×2 (06:38→12:37)
[2019-07-11 06:40] VITALS: PULSE 102; TEMP 98.6
--- NOTE | 2019-07-11 08:21 | Progress Note ---
DATE: 07/11/2019 SUBJECTIVE: A 48-year-old female postop day 2 from a left knee replacement. She is doing okay. Having a decent amount of pain, took some pain medicine now. Pain is controlled, but she is nauseated. No chest pain or shortness of breath. Not feeling dizzy or lightheaded. OBJECTIVE: VITAL SIGNS: Temperature 37.0. Vital signs stable. GENERAL: Shows a pleasant, middle-aged female. She is lying in bed, looks reasonably comfortable. EXTREMITIES: Examination of the left leg reveals the leg to be well aligned. Dressing is clean, dry and intact. No significant drainage. Calf is soft and supple. She is neurologically intact. ASSESSMENT: A 48-year-old female postop day 2 from left knee replacement, doing pretty well. Having a moderate amount of pain and unfortunately had a little nausea with the pain medicine. PLAN: 1. DVT prophylaxis including thigh-high TEDs, SCDs, and she is back on her Xarelto. She is on prophylactic dose currently and starting tomorrow. Will use as a therapeutic dose. 2. PT/OT. She can weightbear as tolerated. Left total knee protocol. 3. Pain control, doing okay with current pain regimen. She has been a bit nauseated and we are going to write her for some Zofran upon discharge. 4. Disposition: Plan to discharge to home with some home health later today if doing okay in therapy.
[2019-07-11] MEDS: HYDROmorphone INJ 0.5 MG/0.5 ML SYR IV PRN (08:38)
[2019-07-11] MEDS ORDERED: OXYCODONE IR HOME PACK PO PRN (10:08)
[2019-07-11 10:37] VITALS: BP 118/73
[2019-07-11] MEDS: FLUTICASONE HFA 110MCG INHALER INH SCH (11:05)
[2019-07-11] MEDS: KETOCONAZOLE 2% CR 15 GM TUBE EXT SCH (11:05)
[2019-07-11] MEDS: FLUTICASONE PROPIONATE NA SPR 16 GM BTL NAE SCH (11:05)
[2019-07-11] MEDS: RIVAROXABAN 10 MG TABLET PO SCH (11:05)
[2019-07-11] MEDS: TAPENTADOL HCL ER 50 MG TABCR PO SCH (11:06)
[2019-07-11] MEDS: DOCUSATE SODIUM 100 MG CAP PO SCH (11:06)
[2019-07-11] MEDS: ASCORBIC ACID 500 MG TAB PO SCH (11:06)
[2019-07-11] MEDS: CHOLECALCIFEROL 1,000 UNITS TAB PO SCH (11:06)
[2019-07-11] MEDS: ATORVASTATIN 20 MG TAB PO SCH (11:06)
[2019-07-11] MEDS: ZINC SULFATE 220 MG CAPSULE PO SCH (11:06)
[2019-07-11] MEDS: LORATADINE 10 MG TAB PO SCH (11:06)
[2019-07-11] MEDS: lisinopriL 20 MG TAB PO SCH (11:06)
[2019-07-11] MEDS: MAGNESIUM OXIDE 400 MG TAB PO SCH (11:06)
[2019-07-11] MEDS: FERROUS GLUCONATE 324 MG TAB PO SCH (11:07)
--- NOTE | 2019-07-13 09:36 | Discharge Summary ---
DATE OF ADMISSION: 07/09/2019 DATE OF DISCHARGE: 07/11/2019 ADMITTING PHYSICIAN AND SURGEON: Dr. Carlos Claros. ADMITTING DIAGNOSIS: Left knee degenerative joint disease. SURGERY PERFORMED: Left total knee arthroplasty. SECONDARY DIAGNOSES: Hypertension, elevated cholesterol, history of deep venous thrombosis and pulmonary embolism, sleep apnea, hypothyroidism, gastroesophageal reflux disease, obesity, kidney stones. CONSULTS: None obtained. HISTORY AND PHYSICAL EXAMINATION: Well documented in the patient's chart. HOSPITAL COURSE: The patient was admitted on 07/09/2019, underwent total knee arthroplasty, tolerated the procedure well. There were no complications. She was transferred to the PACU postoperatively and later to the orthopedic floor for further care. She was given Ancef for antibiotic prophylaxis, GALA stockings, SCDs and Xarelto for DVT prophylaxis. Hemoglobin, hematocrit and vital signs were monitored during hospital stay and remained stable. She did not require any blood transfusions. There were no complications. By postoperative day 2, she was tolerating a regular diet, pain was controlled with oral pain medicine. She was participating in physical therapy. On postop day 2, she was discharged home, set up with home health services. She was given printed discharge instructions as well as new prescriptions for extra strength Tylenol, Zofran and oxycodone. Continue her home medicines including Xarelto. She was instructed to stop the Lovenox and her home dose of Tylenol. Continue physical therapy, weightbearing as tolerated, GALA stockings. Follow up approximately 2 weeks postop or sooner if there are any problems or concerns.
== END 2019-07-11 13:45 | disposition home health service (06) | DRG 470 ==
LOC: ASU 07:51 → 3E 13:25

== ENCOUNTER 2024-06-14 08:10 | Observation (INO) ==
--- NOTE | 2024-05-19 10:15 | PAT Medication Instructions ---
Medication Instructions Date of Service May 19, 2024 Home Medications Medication Instructions Recorded albuterol sulfate 90 mcg/actuation 1 - 2 puff inhalation Q4 PRN 10/02/22 aerosol inhaler Shortness Of Breath #8.5 grams lisinopril 5 mg tablet 5 mg PO QAM #90 tabs 05/15/23 levothyroxine 112 mcg tablet 112 mcg PO QAM #30 tabs 07/24/23 (Synthroid) atorvastatin 20 mg tablet 20 mg PO QAM #90 tabs 10/09/23 pantoprazole 40 mg tablet,delayed 40 mg PO QAM #90 tabs 10/20/23 release fluticasone propionate 50 1 spray intranasal BID #48 grams 01/26/24 mcg/actuation nasal spray,suspension ondansetron 4 mg disintegrating 4 mg PO Q6H PRN nausea and 04/11/24 tablet vomiting #20 tabs oxycodone 5 mg tablet 5 mg PO Q4H PRN pain #10 tabs 04/11/24 Medication List: cholecalciferol (vitamin D3) 125 mcg (5,000 unit) tablet (Vitamin D3) 5,000 unit PO QAM loratadine 10 mg tablet (Claritin) 10 mg PO QPM Bacillus coagulans 250 million cell chewable tablet (Digestive Advantage Probiotic Gummy) 500 cell PO QAM albuterol sulfate 90 mcg/actuation aerosol inhaler 1 - 2 puff inhalation Q4 PRN Shortness Of Breath glucosamine-chondroitin 250 mg-200 mg tablet (Osteo Bi-Flex) 1 tab PO BID multivitamin 1 tab PO QAM lisinopril 5 mg tablet 5 mg PO QAM levothyroxine 112 mcg tablet (Synthroid) 112 mcg PO QAM atorvastatin 20 mg tablet 20 mg PO QAM pantoprazole 40 mg tablet,delayed release 40 mg PO QAM fluticasone propionate 50 mcg/actuation nasal spray,suspension 1 spray intranasal BID fluticasone propionate 110 mcg/actuation HFA aerosol inhaler 1 inh inhalation DAILY PRN wheezing ondansetron 4 mg disintegrating tablet 4 mg PO Q6H PRN nausea and vomiting oxycodone 5 mg tablet 5 mg PO Q4H PRN pain Vitamin B-12 1 tab PO QAM rivaroxaban 20 mg tablet (Xarelto) 20 mg PO QAM MEDICATION INSTRUCTIONS: Continue as directed fluticasone propionate 50 mcg/actuation nasal spray,suspension 1 spray intranasal BID fluticasone propionate 110 mcg/actuation HFA aerosol inhaler 1 inh inhalation DAILY PRN wheezing albuterol sulfate 90 mcg/actuation aerosol inhaler 1 - 2 puff inhalation Q4 PRN Shortness Of Breath (use if needed; BRING TO HOSPITAL) ASK your prescriber and surgeon rivaroxaban 20 mg tablet (Xarelto) 20 mg PO QAM (for spinal anesthesia: must be off of Xarelto/rivaroxaban for at least 72 hours) STOP taking 2 weeks before surgery glucosamine-chondroitin 250 mg-200 mg tablet (Osteo Bi-Flex) 1 tab PO BID DO NOT take the morning of surgery Vitamin B-12 1 tab PO QAM multivitamin 1 tab PO QAM Bacillus coagulans 250 million cell chewable tablet (Digestive Advantage Probiotic Gummy) 500 cell PO QAM cholecalciferol (vitamin D3) 125 mcg (5,000 unit) tablet (Vitamin D3) 5,000 unit PO QAM lisinopril 5 mg tablet 5 mg PO QAM Take morning of surgery With a small sip of water, OTHERWISE NOTHING TO EAT OR DRINK AFTER MIDNIGHT: ondansetron 4 mg disintegrating tablet 4 mg PO Q6H PRN nausea and vomiting oxycodone 5 mg tablet 5 mg PO Q4H PRN pain levothyroxine 112 mcg tablet (Synthroid) 112 mcg PO QAM atorvastatin 20 mg tablet 20 mg PO QAM pantoprazole 40 mg tablet,delayed release 40 mg PO QAM Take evening before surgery ondansetron 4 mg disintegrating tablet 4 mg PO Q6H PRN nausea and vomiting oxycodone 5 mg tablet 5 mg PO Q4H PRN pain loratadine 10 mg tablet (Claritin) 10 mg PO QPM Other Notes If you have any questions please call us at [phone] or [phone] or or [phone]
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
[~2024-06-14 08:10] MED LIST changes: -ACETAMINOPHEN 500 MG TAB PO SCH; -BUPIVACAINE 0.25% 30 ML VIAL ONE; -BUPIVACAINE 0.5 % 5 MG/1 ML PF 10ML VIAL ONE; -BUPIVACAINE LIPOSOME/PF 266 MG, BUPIVACAINE/EPINEPHRINE 50 ML, SODIUM CHLORIDE 0.9% 30 ... INFIL SCH; -CEFAZOLIN 2000MG 2,000 MG/15 ML SYR IV SCH; -FAMOTIDINE 20 MG TAB PO SCH; -GABAPENTIN 900 MG DOSE PO SCH; -LR 500ML BOLUS, THEN 15ML/HR IV SCH; -LR 60ML/HR IV SCH; -METOCLOPRAMIDE HCL 10 MG TABLET PO SCH; +ROPIVACAINE 0.5% 5 MG/ML 30 ML VIAL ONE; -SCOPOLAMINE 1.5 MG TDSY TD SCH; -TRANEXAMIC ACID 1,000 MG **IV Intra-op IV SCH
--- NOTE | 2024-06-14 08:36 | History & Physical Bridge Note ---
Date of Service June 14, 2024 History & Physical Bridge Note I have examined the patient, reviewed the History & Physical and in the interval since the performance of the History & Physical I have noted the following changes of clinical significance: no changes noted
[2024-06-14] MEDS ORDERED: KETAMINE HCL 10MG/ML SYR ONE (08:54)
[2024-06-14] MEDS ORDERED: MIDAZOLAM HCL 1 MG/ML 2ML VIAL ONE (08:54)
[2024-06-14] MEDS ORDERED: LIDOCAINE 2% 2 ML VIAL/AMP(20MG/ML) INFIL ONE (09:00)
[2024-06-14] MEDS ORDERED: PROPOFOL IV EMULSION 10 MG/ML 20 ML VIAL IV ONE ×2 (09:00→11:56)
[2024-06-14] MEDS ORDERED: GLYCOPYRROLATE 0.2 MG/ML VIAL ONE (09:00)
[2024-06-14] MEDS ORDERED: ONDANSETRON INJ 2 MG/ML 2 ML VIAL ONE (09:00)
[2024-06-14] MEDS: LR 60ML/HR IV SCH (09:03)
[2024-06-14] MEDS: LR 500ML BOLUS, THEN 15ML/HR IV SCH (09:03)
[2024-06-14] MEDS: dexAMETHasone**PF** 10 MG/ML VIAL IV SCH (09:04)
[2024-06-14] MEDS: METOCLOPRAMIDE HCL 10 MG TABLET PO SCH (09:04)
[2024-06-14] MEDS: ACETAMINOPHEN 500 MG TAB PO SCH ×2 (09:04→14:41)
[2024-06-14] MEDS: CeleBREX 200 MG CAP PO SCH (09:04)
[2024-06-14] MEDS: FAMOTIDINE 20 MG TAB PO SCH (09:04)
[2024-06-14] MEDS ORDERED: ATROPINE SULFATE 0.1 MG/ML 10ML SYR IV PRN (09:22)
[2024-06-14] MEDS ORDERED: PROMETHAZINE HCL 6.25 MG in SODIUM CHLORIDE 0.9% 50 ML IV PRN (09:22)
[2024-06-14] MEDS ORDERED: ePHEDrine sulfate 50 MG/ML AMP IV PRN (09:22)
[2024-06-14] MEDS ORDERED: KETOROLAC 30 MG/ML VIAL IV PRN (09:22)
[2024-06-14] MEDS ORDERED: fentaNYL citrate PF 100 MCG/2 ML VIAL IV PRN (09:22)
[2024-06-14] MEDS: SCOPOLAMINE 1 MG/72 HR TDSY PATCH TD ONE (09:33)
[2024-06-14] MEDS: ceFAZolin 2000MG 2,000 MG/15 ML SYR IV SCH ×2 (10:44→18:16)
[2024-06-14] MEDS ORDERED: PHENYLEPHRINE 100MCG/ML 5ML SYR ONE (11:16)
[2024-06-14] MEDS: ROPIV 0.5% 246mg, Ketorolac 30mg, EPINEPHrine 0.5mg in NSS INFIL SCH (11:25)
[2024-06-14] MEDS: ORTHO JOINT ANESTHETIC ONE (11:26)
[2024-06-14] MEDS: TRANEXAMIC ACID 1,000 MG **IV Intra-op IV SCH (11:33)
[2024-06-14] MEDS ORDERED: KETOROLAC 30 MG/ML VIAL ONE (12:03)
--- NOTE | 2024-06-14 12:28 | Operative Report ---
PG Post Operative Report Pre & Post Diagnosis Operation Date: 06/14/24 10:40 Pre-Op Diagnosis: Right Knee Degenerative Joint Disease Post-Op Diagnosis: Right Knee Degenerative Joint Disease I identified the patient and participated in the time-out.: Yes Procedure Operation Date: 06/14/24 10:40 Actual Procedures p Right Total Knee Arthroplasty(Right) - Carlos Claros MD Surgeon Carlos Claros MD Fiber Optics Engineer Blake Robertson PA-C Estimated Blood Loss 50 Findings Consistent with Post-Op Diagnosis Specimens Right knee sent for pathology. Anesthesia Type Spinal MAC Complications none Disposition Accompanied Patient To Recovery: No Indications The patient is a 53-year-old fairly active female whose had a long history of knee pain and discomfort. She been through extensive conservative treatment over the years which became less successful. She had her left knee replaced 5 years ago and is done well from this. She continued be limited by right knee pain discomfort. She elected proceed with right total knee arthroplasty. Description of Procedure Operative implants consist of: 1. Biomet Vanguard size 62.5 right posterior stabilized femoral component. 2. Biomet size 67 tibial tray. 3. 10 mm posterior stabilized polyethylene insert. 4. 28 x 8 all poly patella. The patient was taken to the op room, identified, placed on the operating table in the supine position. All contact areas were appropriately padded. IV antibiotics tried by anesthesia team. A spinal anesthetic and adductor canal block had been provided in the holding area. A Mo catheter was placed in s terile fashion. The right thigh high tourniquet was then placed. The right lower extremity was then prepped and draped in usual sterile fashion. The right leg was elevated and exsanguinated with use of an Esmarch and the tourniquet was placed at 300 mmHg. An anterior approach to the right knee was then performed through a longitudinal incision centered over the patella. Sharp dissection was carried through subcutaneous tissue down to the extensor mechanism. A medial parapatellar arthrotomy incision was made. Some subperiosteal dissection was carried out medially. The fat pad was resected from each patella tendon. The lateral patellofemoral ligament was released. Patella subluxated laterally and the knee was flexed. The osteophytes taken off distal femur. The ACL and PCL were then released from the distal femur and the tibia subluxated anteriorly. The external tibial alignment jig was then placed on the anterior face the tibia and adjusted 14 mm medially. The proximal tibial cut was made remove out of millimeter bone from the most efficient aspect of the medial tibial plateau. Some osteophytes were taken off medially. The tibia was then sized to a size 67. Attention drawn the femur. The distal femur 0 with a sharp drill. Intramedullary canal was suction. A right 5 degree valgus cutting guide was placed. A distal femoral cutting block was pinned in place. The distal femoral cut was made to take an additional 3 mm of bone off distal femur. The femur was then sized to a size 62.5. The AP cutting guide was then pinned parallel to the epicondylar axis which was 4 degrees of external rotation. The anterior cut, anterior chamfer, posterior cut, posterior chamfer cuts were made. The box cutting guide was placed and just slight lateral and the box cut was made. The knee was flexed. The remnants of the medial and lateral menisci were excised. The osteophytes taken off the posterior aspect of the femur. A trial femoral component was placed. The tibial tray was pinned in C[place]ia external rotation and the drill and stem punch were used to create defect in proximal tibia for the tibial tray. The knee was then trialed and the 10 mm insert fit most appropriately. Attention was then drawn to the patella. The patella was cleaned of all soft tissues. Patella thickness measured 23 mm in thickness was cut down to 14. It was sized to a size 28 patella. The lug holes were drilled for the 28 patella. The lateral osteophytes removed. Patella button was placed. Knee was taken through range of motion patella tracked nicely with no thumbs test. Attention was then drawn toward placing the permanent components. All trial components were removed. A bone plug was placed into this femur limit blood loss. A double batch Palacos G cement was mixed. A Biomet Vanguard size 62.5 right posterior Byce femoral component, size 67 tibial tray, a 10 mm posterior stabilized polyethylene insert, and a 28 x 8 all poly patella then cemented in place. The knee was brought out into full extension till cement hardened. Final cement check was then performed. The pericapsular tissues were injected with a total of 100 cc of Ortho mix. The patient did receive 1 g tranexamic acid. The tourniquet was then let down for final tourniquet time of 51 minutes. Hemostasis surges electrocautery. Extensor Metros then closed with a combination 1 PDS suture and then 1 Vicryl suture in a [id number] fashion. The extensor Metros were checked and found to be intact. The subcutaneous tissue was then closed with 2 Dexon suture in a buried interrupted fashion the skin was closed with skin ramya. Leg was then cleaned and dried and a sterile dressing was Xeroform, 4 fours, sterile cast padding, Lico bandage were applied. Patient was then transferred to the recovery room in stable condition. The patient tolerated the procedure well and there were no complications. Blake Robertson, my physician shipping assistant, was present for the entire procedure. His assistance was essential and required for appropriate patient positioning, prepping and draping, surgical exposure, performing the technical details of the operation, placement the implants, closure of the wound, and placement of the sterile bandage. I attest to the content of the Intraoperative Record and any orders documented therein. Any exceptions are noted below.
--- NOTE | 2024-06-14 12:53 | XRay Report ---
EXAM: Radiographs of the Right Knee 1 or 2 Views INDICATION: Postoperative replacement. TECHNIQUE: Frontal and lateral views of the right knee. COMPARISON: No relevant prior studies available. FINDINGS: Bones/joints: Total knee arthroplasty components well-seated and intact. No fracture, subluxation or dislocation. Soft tissues: Expected postoperative soft tissue swelling and gas noted. Impre. IMPRESSION: Satisfactory appearance of total knee arthroplasty. ACT 112: Negative or not required by law. Electronically signed by Aurora Lewis 06-14-2024 12:53 PM
--- NOTE | 2024-06-14 13:02 | Anesthesiology Progress Note ---
Date of Service June 14, 2024 Anesthesia Post Procedure Vital Signs Vital Signs: Temp Pulse Pulse Resp BP Pulse Ox O2 Del Method 06/14/24 13:00 36.5 C 98 H 16 128/71 94 Room Air 06/14/24 12:50 102 H 18 117/70 93 Room Air 06/14/24 12:40 103 H 20 111/70 93 Room Air 06/14/24 12:30 106 H 16 111/67 94 Room Air 06/14/24 12:21 36.7 C 109 H 12 107/67 96 Oxymask 06/14/24 08:45 37.1 C 99 H 20 163/110 H 96 Room Air O2 Flow Rate 06/14/24 13:00 06/14/24 12:50 06/14/24 12:40 06/14/24 12:30 06/14/24 12:21 6 06/14/24 08:45 Pain Intensity Right Shoulder: Pain Intensity: 4 Transfer of Care Handoff Completed per policy Notes Mental Status: alert / awake / arousable Patient Amnestic to Procedure: Yes Nausea / Vomiting: adequately controlled Pain: adequately controlled Airway Patency, RR, SpO2: stable & adequate BP & HR: stable & adequate Hydration State: stable & adequate Anesthetic Complications: no major complications apparent
[2024-06-14] MEDS ORDERED: ALUMINUM/MAGNESIUM SUSP 30 ML UDC PO PRN (13:34)
[2024-06-14] MEDS ORDERED: ALBUTEROL HFA 8 GM INHALER INH PRN (13:34)
[2024-06-14] MEDS ORDERED: METOCLOPRAMIDE HCL INJ 5 MG/ML 2 ML VIAL IV PRN (13:34)
[2024-06-14] MEDS ORDERED: ONDANSETRON INJ 2 MG/ML 2 ML VIAL IV PRN (13:34)
[2024-06-14] MEDS ORDERED: NALOXONE HCL 0.4 MG/1 ML VIAL/CARP IV PRN (13:34)
[2024-06-14] MEDS ORDERED: diphenhydrAMINE Capsule 25 MG CAP PO PRN (13:34)
[2024-06-14] MEDS ORDERED: MAGNESIUM HYDROXIDE SUSP 30 ML UDC PO PRN (13:34)
[2024-06-14] MEDS ORDERED: HYDROmorphone INJ 0.5 MG/0.5 ML SYR IV PRN (13:34)
[2024-06-14] MEDS ORDERED: bisacodyL 10 MG SUPP PR PRN (13:34)
[2024-06-14] MEDS ORDERED: FLUTICASONE FUROATE 100MCG 14 PUFFS/INHALER INH PRN (14:04)
[2024-06-14] MEDS: CHECK SCOPOLAMINE PATCH PLACEMENT SCH (16:41)
[2024-06-14] MEDS: ASCORBIC ACID 500 MG TAB PO SCH (17:55)
[2024-06-14] MEDS: KETOROLAC 30 MG/ML VIAL IV SCH (17:56)
[2024-06-14] MEDS: TRANEXAMIC ACID / 0.7% NACL 1,000 MG/100 ML BAG IV SCH (17:56)
[2024-06-14] MEDS: LORATADINE 10 MG TAB PO SCH (20:50)
[2024-06-14] MEDS: TRIAMCINOLONE ACET 0.1% CR 15 GM TUBE TOP SCH (20:51)
[2024-06-14] MEDS: DOCUSATE SODIUM 100 MG CAP PO SCH (20:51)
[2024-06-14] MEDS: SENNA 8.6 MG TAB PO SCH (20:51)
[2024-06-14] MEDS: FLUTICASONE PROPIONATE NA SPR 16 GM BTL NAE SCH (20:51)
[2024-06-14] MEDS ORDERED: NON-FORMULARY MEDICATION (Glucosamine-Chondroitin [Osteo Bi-Flex] 250-200 mg Tablet) PO SCH (21:00)
[2024-06-14] MEDS ORDERED: SENNA 8.6 MG TAB PO SCH (21:00)
[2024-06-15 03:15] VITALS: O2SAT 97
[2024-06-15] MEDS: LEVOTHYROXINE SODIUM 112 MCG TABLET PO SCH (05:51)
[2024-06-15 06:46] LABS: Hemoglobin 12.5 g/dl (12.0-16.0); Mean Corpuscular Hemoglobin 29.5 pg (25.0-34.0); Mean Corpuscular Hgb Conc 33.8 g/dL (32.0-36.0); Mean Corpuscular Volume 87.3 fL (80.0-100.0); Mean Platelet Volume 10.1 fL (9.4-12.4); Platelet Count 375 K/uL (130-400); RDW Coefficient of Variation 13.5 % (11.5-14.5); RDW Standard Deviation 42.6 fL (36.4-46.3); Red Blood Count 4.24 M/uL (4.20-5.40); White Blood Count 15.68 K/ul (4.8-10.8)
[2024-06-15 07:15] LABS: BUN Creatinine Ratio 20.3 (10-20); Calcium 9.4 mg/dl (8.6-10.3); Creatinine Clr Calc Pharmacy 100.1 ml/min; Potassium 4.1 mmol/L (3.5-5.1)
[2024-06-15 07:29] VITALS: BP 127/83; PULSE 77; RESP 17; TEMP 98.4
[2024-06-15] MEDS: lisinopril 5 MG TAB PO SCH (07:35)
[2024-06-15] MEDS: dexAMETHasone 10 MG in SYRINGE 0 ML IV SCH (07:35)
[2024-06-15] MEDS: PANTOprazole 40 MG TAB PO SCH (07:35)
[2024-06-15] MEDS: ATORVASTATIN 20 MG TAB PO SCH (07:36)
[2024-06-15] MEDS: CHOLECALCIFEROL 125 MCG (5,000 UNITS) TAB PO SCH (07:36)
[2024-06-15] MEDS: MULTIVITAMIN TAB PO SCH (07:36)
[2024-06-15] MEDS ORDERED: NON-FORMULARY MEDICATION (Multivitamin Tablet) PO SCH (09:00)
[2024-06-15] MEDS ORDERED: VITAMIN B12 PO SCH (09:00)
--- NOTE | 2024-06-15 10:51 | Orthopedic Progress Note ---
Date of Service June 15, 2024 Assessment & Plan (1) Status post right knee replacement: Plan: 53-year-old female postop day 1 from a right knee replacement with a history of a DVT and PE in the past on chronic anticoagulation doing quite well. Pains controlled. She is neurologically intact. Hoping to go home today. Plan: 1. DVT prophylaxis including thigh-high teds, SCDs, and will start her back on her Xarelto. She will get 10 mg today 24 hours after surgery and then she can go back on her 20 mg dose tomorrow. 2. PT/OT. Weight-bear as tolerated right total knee protocol. 3. Pain control doing well with current pain regimen. 4. Disposition. Plan is to discharge to home with some home health if she does okay in therapy today. (2) DVT (deep venous thrombosis): Admission and Anticipated Discharge Date Admission Date: June 14, 2024 Subjective 53-year-old female postop day 1 from right knee replacement. That she is doing pretty well. Had a good night. Really not have much pain. No chest pain or shortness of breath. Not feeling dizzy or lightheaded. Hoping to go home today. Physical Exam Physical Exam: Physical examination is a pleasant middle-aged female. She sitting up in bed looks pretty comfortable this morning. Examination of the right leg reveals the leg to be well aligned. Dressings clean dry and intact. She can do a straight leg raise. She can dorsiflex and plantarflex her foot appropriately. She is neurologically intact. Respiratory: normal respiratory effort, lungs clear to auscultation Cardiovascular: RRR, no murmur, no edema Gastrointestinal (Abdomen): normal bowel sounds, soft, nontender, no hepatosplenomegaly Results & Data Vital Signs (Past 12 Hours) Vital Signs Temp Pulse Pulse Resp BP Pulse Ox O2 Del Method 06/15/24 07:28 36.9 C 77 17 127/83 97 Room Air 06/15/24 03:14 36.5 C 83 12 144/85 H 97 Room Air 06/15/24 00:07 36.8 C 87 18 135/82 93 Room Air Laboratory Results Hemoglobin is 12.5. Hematocrit is 37.0. Electrolytes are stable.
[2024-06-15] MEDS: RIVAROXABAN 10 MG TABLET PO SCH (10:55)
[2024-06-15] MEDS: oxyCODONE HCL IR 5 MG TAB (IMMEDIATE RELEASE) PO PRN (11:27)
== END 2024-06-15 11:37 | disposition home health service (06) ==
LOC: 3W 08:10 → ASU 08:10

== ENCOUNTER 2024-06-18 13:25 | Observation (INO) ==
[2024-06-18 14:00] LABS: iSTAT Hemoglobin 14.3 g/dl (12.0-16.0); iSTAT Ionized Calcium 1.16 mmol/l (1.12-1.32); iSTAT Potassium 3.9 mmol/L (3.3-5.0)
--- NOTE | 2024-06-18 14:05 | Emergency Department Note ---
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 MOUTH EVERY DAY pantoprazole 40 mg tablet,delayed release (DR/EC) 40 mg PO QAM Qty: 90 3RF fluticasone propionate 50 mcg/actuation spray,suspension 1 spray intranasal BID Qty: 48 3RF Rx Instructions: administer into each nostril lisinopril 5 mg tablet 5 mg PO QAM Qty: 90 3RF Rx Instructions: pt aware reduced dose sennosides [Senokot] 8.6 mg tablet 8.6 mg PO BID 14 Days Qty: 28 0RF Rx Instructions: Unable to verify OTC meds at this date/time. acetaminophen [Tylenol Extra Strength] 500 mg tablet 1,000 mg PO TID 30 Days Qty: 180 0RF Rx Instructions: Unable to verify OTC meds at this date/time. ondansetron 4 mg tablet,disintegrating 4 mg PO Q8 PRN (Reason: nausea) Qty: 20 1RF Rx Instructions: Take as needed for nausea oxycodone 5 mg tablet 5 - 10 mg PO Q6 PRN (Reason: pain) Qty: 40 0RF Rx Instructions: Take as needed for pain cefadroxil 500 mg capsule 500 mg PO BID 7 Days Qty: 14 0RF Rx Instructions: Start Date 06/12/24 x7 day supply loratadine [Claritin] 10 mg tablet 10 mg PO QPM Rx Instructions: Unable to verify OTC meds at this date/time. triamcinolone acetonide 0.1 % cream 1 applic topical BID Qty: 30 0RF cholecalciferol (vitamin D3) [Vitamin D3] 5,000 unit Tablet 5,000 unit PO QAM Rx Instructions: Unable to verify OTC meds at this date/time. Digestive Advantage Prob Gummy 250 million cell Tablet,Chewable 500 cell PO QAM Rx Instructions: Unable to verify OTC meds at this date/time. multivitamin Tablet 1 tab PO QAM Rx Instructions: Unable to verify OTC meds at this date/time. glucosamine-chondroitin [Osteo Bi-Flex] 250-200 mg Tablet 1 tab PO BID Rx Instructions: Unable to verify OTC meds at this date/time. cyanocobalamin (vitamin B-12) [Vitamin B-12] 1,000 mcg Tablet 1,000 mcg PO QAM Qty: 0 Rx Instructions: Unable to verify OTC meds at this date/time. Xarelto 20 mg Tablet 20 mg PO QAM Rx Instructions: must administer with evening meal Referrals Referrals: Smita Winslow CRNP [Primary Care Provider] - Discharge Problem: History of knee replacement, total Qualifiers: Laterality: right Qualified Code(s): Z96.651 - Presence of right artificial knee joint Speech abnormality Qualifiers: Speech disturbance type: unspecified speech disturbance Qualified Code(s): R 47.9 - Unspecified speech disturbances
[2024-06-18 14:13] LABS: Basophils # (auto) 0.04 K/uL (0.00-0.20); Basophils % (auto) 0.4 %; Eosinophils # (auto) 0.14 K/uL (0.00-0.50); Eosinophils % (auto) 1.3 %; Hematocrit (blood only) 40.8 % (37.0-47.0); Hemoglobin 13.6 g/dl (12.0-16.0); Immature Granulocytes # (auto) 0.06 K/uL (0.01-0.20); Immature Granulocytes % (auto) 0.5 %; Lymphocytes # (auto) 2.59 K/uL (1.20-3.40); Lymphocytes % (auto) 23.1 %; Mean Corpuscular Hemoglobin 29.6 pg (25.0-34.0); Mean Corpuscular Hgb Conc 33.3 g/dL (32.0-36.0); Mean Corpuscular Volume 88.9 fL (80.0-100.0); Mean Platelet Volume 9.7 fL (9.4-12.4); Monocytes # (auto) 0.81 K/uL (0.11-0.59); Monocytes % (auto) 7.2 %; Neutrophils # (auto) 7.56 K/uL (1.40-6.50); Neutrophils % (auto) 67.5 %; Platelet Count 453 K/uL (130-400); RDW Coefficient of Variation 13.3 % (11.5-14.5); RDW Standard Deviation 43.7 fL (36.4-46.3); Red Blood Count 4.59 M/uL (4.20-5.40)
[2024-06-18] MEDS: OPTIRAY 320 125ml IV ONE (14:13)
[2024-06-18 14:19] LABS: Albumin Globulin Ratio 1.2 (0.9-2); Albumin Level 4.2 gm/dl (3.4-5.0); BUN Creatinine Ratio 13.8 (10-20); Bilirubin,Total 0.6 mg/dl (0.2-1.0); Calcium 9.6 mg/dl (8.6-10.3); Creatinine Clr Calc Pharmacy 93.4 ml/min; Globulin 3.4 gm/dl (2.5-4.0); Potassium 4.1 mmol/L (3.5-5.1); Total Protein 7.6 gm/dl (6.0-8.3)
--- NOTE | 2024-06-18 14:27 | CT Scan Report ---
EXAM: CT Angiography Neck With Intravenous Contrast INDICATION: Slurred speech. Anisocoria TECHNIQUE: Routine carotid CT angiography protocol was performed with intravenous contrast. NASCET criteria using the distal ICAs for comparison were used for evaluation of stenoses. Sagittal and coronal reformatted images were created and reviewed. This CT exam was performed using one or more of the following dose reduction techniques: automated exposure control, adjustment of the mA and/or kV according to patient size, and/or use of iterative reconstruction technique. MIP reconstructed images were created and reviewed. CONTRAST: 119ml of Optiray 320 was administered intravenously. COMPARISON: None. FINDINGS: VASCULATURE: Right common carotid artery: No abnormality noted. No occlusion or significant stenosis. No dissection. Right internal carotid artery: No abnormality noted. Extracranial segment is patent with no occlusion or significant stenosis. No dissection. Right external carotid artery: No abnormality noted. No occlusion. Right vertebral artery: No abnormality noted. No occlusion or significant stenosis. No dissection. Left common carotid artery: No abnormality noted. No occlusion or significant stenosis. No dissection. Left internal carotid artery: Very minimal focus of calcific plaque in the bulb. Extracranial segment is patent with no occlusion or significant stenosis. No dissection. Left external carotid artery: No abnormality noted. No occlusion. Left vertebral artery: No abnormality noted. No occlusion or significant stenosis. No dissection. NECK: Bones/joints: N degenerative changes in the spine.. Soft tissues: No abnormality noted. Lung apices: Clear. Thyroid: 4 x 7 mm hypodense nodule in the right lobe. No further assessment required. CAROTID STENOSIS REFERENCE USING NASCET CRITERIA: % ICA stenosis = (1 - narrowest ICA diameter/diameter of distal cervical ICA) x 100. Mild - <50% stenosis. Moderate - 50-69% stenosis. Severe - 70-94% stenosis. Near occlusion - 95-99% stenosis. Occluded - 100% stenosis. IMPRESSION: No significant angiographic abnormality in the neck. ACT 112: Negative or not required by law. Electronically signed by Aurora Lewis 06-18-2024 2:26 PM
--- NOTE | 2024-06-18 14:28 | CT Scan Report ---
EXAM: CT Head Without Intravenous Contrast INDICATION: Slurred speech. Anisocoria. TECHNIQUE: Axial computed tomography images of the head/brain without intravenous contrast. Sagittal and/or coronal reformats are provided. Sagittal and coronal reformatted images were created and reviewed. This CT exam was performed using one or more of the following dose reduction techniques: automated exposure control, adjustment of the mA and/or kV according to patient size, and/or use of iterative reconstruction technique. COMPARISON: 09/16/2022 FINDINGS: Limitations: None. Brain and extra-axial spaces: No abnormality noted. No hemorrhage. No significant white matter disease. No edema. No ventriculomegaly. Bones/joints: No acute changes. Soft tissues: No significant abnormality noted. Vasculature: No acute abnormality noted. Sinuses: No layering fluid in the visualized portions of the paranasal sinuses. Mastoid air cells: No mastoid effusion. Orbits: No significant abnormality noted. IMPRESSION: No abnormality noted. ACT 112: Negative or not required by law. Electronically signed by Aurora Lewis 06-18-2024 2:28 PM
--- NOTE | 2024-06-18 14:31 | CT Scan Report ---
EXAM: CT Angiography Head With Intravenous Contrast INDICATION: Slurred speech. Anisocoria. TECHNIQUE: Axial computed tomographic angiography images of the head with intravenous contrast. Sagittal and coronal reformatted images were created and reviewed. This CT exam was performed using one or more of the following dose reduction techniques: automated exposure control, adjustment of the mA and/or kV according to patient size, and/or use of iterative reconstruction technique. MIP reconstructed images were created and reviewed. CONTRAST: 119 cc Optiray 320 was administered intravenously. COMPARISON: No relevant prior studies available. FINDINGS: Right internal carotid artery: No acute change noted. Intracranial segment is patent with no significant stenosis. No aneurysm. Right anterior cerebral artery: No abnormality noted. No occlusion or significant stenosis. No aneurysm. Right middle cerebral artery: No abnormality noted. No occlusion or significant stenosis. No aneurysm. Right posterior cerebral artery: No abnormality noted. No occlusion or significant stenosis. No aneurysm. Right vertebral artery: No significant abnormality noted. Left internal carotid artery: No acute change noted. Intracranial segment is patent with no significant stenosis. No aneurysm. Left anterior cerebral artery: No abnormality noted. No occlusion or significant stenosis. No aneurysm. Left middle cerebral artery: No abnormality noted. No occlusion or significant stenosis. No aneurysm. Left posterior cerebral artery: No abnormality noted. No occlusion or significant stenosis. No aneurysm. Left vertebral artery: No significant abnormality noted. Basilar artery: No abnormality noted. No occlusion or significant stenosis. No aneurysm. Other vasculature: Patent dural venous sinuses. IMPRESSION: No angiographic abnormality in the head. ACT 112: Negative or not required by law. Electronically signed by Aurora Lewis 06-18-2024 2:31 PM
--- NOTE | 2024-06-18 14:32 | XRay Report ---
XR chest 1V portable CLINICAL HISTORY: weakness COMPARISON STUDY: Chest CT December 10, 2018. Chest radiograph May 28, 2024. FINDINGS: Lung volumes are normal. Lungs are clear. There is no pneumothorax or pleural effusion. Car diac size is normal. Mediastinal contours are normal. There is no evidence for pulmonary edema. IMPRESSION: No acute cardiopulmonary findings. ACT 112: Negative or not required by law. Electronically signed by: Parvez Aldridge M.D. 06/18/2024 2:31 PM
[2024-06-18 14:33] LABS: Thyroid Stimulating Hormone 4.451 uIu/ml (0.300-4.500)
[2024-06-18] MEDS: SODIUM CHLORIDE 0.9% 1,000 ML IV ONE (14:41)
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
[2024-06-18 16:05] LABS: Adenovirus PCR Not Detected (NotDetected); Bordetella parapertussis PCR Not Detected (NotDetected); Bordetella pertussis PCR Not Detected (NotDetected); Chlamydia pneumoniae PCR Not Detected (NotDetected); Coronavirus 229E PCR Not Detected (NotDetected); Coronavirus CoV-2 (COVID19)PCR Not Detected (NotDetected); Coronavirus HKU1 PCR DETECTED (NotDetected); Coronavirus NL63 PCR Not Detected (NotDetected); Coronavirus OC43PCR Not Detected (NotDetected); Human Metapneumovirus PCR Not Detected (NotDetected); Influenza A PCR Not Detected (NotDetected); Influenza B PCR Not Detected (NotDetected); Mycoplasma pneumoniae PCR Not Detected (NotDetected); Parainfluenza Virus 1 PCR Not Detected (NotDetected); Parainfluenza Virus 2 PCR Not Detected (NotDetected); Parainfluenza Virus 3 PCR Not Detected (NotDetected); Parainfluenza Virus 4 PCR Not Detected (NotDetected); Respiratory Syncytial VirusPCR Not Detected (NotDetected); Rhinovirus/Enterovirus PCR Not Detected (NotDetected)
[2024-06-18] MEDS: ONDANSETRON INJ 2 MG/ML 2 ML VIAL IV STA (17:08)
[2024-06-18] MEDS: FAMOTIDINE 20MG IV PUSH 20 MG/5 ML SYR IV STA (17:08)
--- NOTE | 2024-06-18 17:08 | Magnetic Resonance Report ---
EXAM: MR brain wo con CLINICAL HISTORY: R/O CVA HAD RIGHT KNEE REPLACEMENT ON FRIDAY WOKE UP PALE, LIGHT R/O CVA HAD RIGHT KNEE REPLACEMENT ON FRIDAY WOKE UP PALE, LIGHT HEADED SLURRED SPEECH AND CONFUSION TECHNIQUE: MRI of the brain was performed without contrast with multiplanar sequences obtained. COMPARISON: CT done on the same day CT and 09/16/2022. FINDINGS: Brain Parenchyma: [id number] Bilateral frontoparietal foci of abnormal high T2 /[id number].[id number].5.1.2 FLAIR signal are noted, with no perifocal brain edema or mass effect. /OBX.5.1.2/OBX.5.1 No evidence of acute infarction or hemorrhage. Normal brar-white matter differentiation. No mass lesions or focal cortical abnormalities identified. Ventricles and Sulci: Normal size and configuration of the lateral ventricles, third ventricle, and fourth ventricle. No evidence of hydrocephalus or ventriculomegaly. Sylvian fissures, sulci, and cisterns are within normal limits. Posterior Fossa: Cerebellum and brainstem appear normal without evidence of mass lesions or signal abnormalities. Cranial Nerves: Normal course and appearance of cranial nerves identified. Vessels: No evidence of vascular malformations or aneurysms. Intracranial arteries and veins appear normal without evidence of stenosis or occlusion. Orbits and Skull Base: Orbits and skull base structures are normal without evidence of abnormalities. IMPRESSION: 1. No acute intracranial abnormality identified. 2. Bilateral cerebral foci of abnormal signal likely old lacunar infarcts. 3. No changes on interval. Electronically signed by Delonte More 06-18-2024 5:06 PM
[2024-06-18] MEDS ORDERED: ONDANSETRON INJ 2 MG/ML 2 ML VIAL IV PRN (19:38)
[2024-06-18] MEDS: ACETAMINOPHEN 325 MG TAB PO PRN (21:34)
[2024-06-18] MEDS: FLUTICASONE PROPIONATE NA SPR 16 GM BTL SCH (21:35)
[2024-06-18] MEDS: MELATONIN 3 MG TAB PO PRN (22:14)
[2024-06-18] MEDS: cefaDROXiL 500 MG CAP PO SCH (22:14)
[2024-06-19] MEDS: LEVOTHYROXINE SODIUM 112 MCG TABLET PO SCH (06:05)
[2024-06-19 07:04] LABS: Basophils # (auto) 0.05 K/uL (0.00-0.20); Basophils % (auto) 0.5 %; Eosinophils # (auto) 0.21 K/uL (0.00-0.50); Hematocrit (blood only) 34.7 % (37.0-47.0); Hemoglobin 11.5 g/dl (12.0-16.0); Immature Granulocytes # (auto) 0.06 K/uL (0.01-0.20); Immature Granulocytes % (auto) 0.6 %; Lymphocytes # (auto) 3.19 K/uL (1.20-3.40); Lymphocytes % (auto) 30.1 %; Mean Corpuscular Hemoglobin 29.5 pg (25.0-34.0); Mean Corpuscular Hgb Conc 33.1 g/dL (32.0-36.0); Mean Platelet Volume 9.7 fL (9.4-12.4); Monocytes # (auto) 0.97 K/uL (0.11-0.59); Monocytes % (auto) 9.2 %; Neutrophils # (auto) 6.12 K/uL (1.40-6.50); Neutrophils % (auto) 57.6 %; Platelet Count 396 K/uL (130-400); RDW Coefficient of Variation 13.5 % (11.5-14.5)
[2024-06-19 07:05] VITALS: BP 130/72; RESP 20; TEMP 97.7; O2SAT 95
[2024-06-19 07:30] LABS: Potassium 4.1 mmol/L (3.5-5.1)
[2024-06-19 07:36] LABS: BUN Creatinine Ratio 21.3 (10-20); Creatinine Clr Calc Pharmacy 129.7 ml/min
--- NOTE | 2024-06-19 07:54 | Electrocardiogram Report ---
Test Reason : Blood Pressure : */* mmHG Vent. Rate : 103 BPM Atrial Rate : 103 BPM P-R Int : 130 ms QRS Dur : 78 ms QT Int : 340 ms P-R-T Axes : 68 31 48 degrees QTcB Int : 445 ms Sinus tachycardia Otherwise normal ECG When compared with ECG of 28-May-2024 12:52, No significant change was found Confirmed by Mario Singh ([id number]) on 06/19/2024 7:54:09 AM Referred By: Confirmed By: Mario Singh
[2024-06-19] MEDS: PANTOprazole 40 MG TAB PO SCH (08:24)
[2024-06-19] MEDS: ATORVASTATIN 20 MG TAB PO SCH (08:24)
[2024-06-19] MEDS: SENNA 8.6 MG TAB PO SCH (08:27)
[2024-06-19 10:25] VITALS: PULSE 100
[2024-06-19] MEDS ORDERED: RIVAROXABAN 20 MG TAB PO SCH (16:30)
--- NOTE | 2024-06-19 16:42 | Discharge Summary ---
Discharge Summary Date of Service June 19, 2024 Principal Dx & Hospital Course #1 = Principal Diagnosis (1) Pre-syncope: Acute onset of lightheadedness, nausea, facial flushing, slurred speech, incoherent thought process, and hypotension while in the shower on 06/18 Witnessed by , reports the episode lasted 5 minutes No LOC or syncope On EMS arrival, patient was hypotensive at 69/41 Resolved. CTA head/neck unremarkable. Brain MRI without acute findings, no acute stroke. Tele unremarkable. Bilateral old possible lacunes - has remote Hx migraine, has history of VTE - potentially embolic related to this? Episode was related to hypotension and was not TIA-like Follow up with PCP She had some anisocoria on exam - improved - today L pupil is very slightly smaller on daylight exam, equal on dark room exam. She had scopolamine patch on until yesterday and its probably related to this. No vision changes. Presentation consistent with vasovagal episode. Recent symptoms exacebated by non-COVID coronavirus HKU1 with recent URI symptoms and fatigue - supportive care (2) Status post right knee replacement: Right TKA with Dr. Claros on Thursday 06/14 Continue PT and follow up with Dr. Clarso (3) History of pulmonary embolism: In 2018 Continue Xarelto Admission HPI Per Admitting Provider Aleksandra is a 53-year-old female with PMH of pulmonary embolism (on Xarelto), diverticulitis, GERD, anxiety, HTN, asthma, and hypothyroidism. She presented on 06/18 after she became pale, diaphoretic, lightheaded, and exhibited slurred speech while in the shower this morning. This episode lasted for 5 minutes, and was witnessed by her (Andrew) who is at the bedside and provides additional history. The patient reportedly did not syncopize or lose consciousness. She finished her shower in her shower chair, and then sat her down on the toilet. She reported she was having nausea and lightheadedness. reports slurred speech, facial flushing, and incoherent thought processes (babbling) at this time. No facial droop appreciated. No unilateral deficits, but patient reports she felt weak on both sides. Patient's called EMS, and then the patient reports she needed to have a bowel movement; which she had prior to EMS arrival. On EMS arrival, patient's BP was reportedly 69/41. Patient had a recent right knee replacement on a Thursday 06/14. Patient reports she was eating and drinking fine up until , when she started to feel sick with cold-like symptoms (productive cough, sinus pressure, congestion). Note: Patient also had the symptoms last week prior to her surgery. Patient's reports that she was still eating some food like crackers, macaroni, soup, and fruits. reports that her Xarelto was stopped prior to procedure, and they had some concern for stroke/TIA symptoms with the slurred speech. Patient took all of her regular morning medicine today, including Xarelto. Patient had a home health nurse come yesterday, and her vitals were reported to be normal at this time. She has had nausea throughout the course of the week ever since her surgery. No prior history of stroke or TIA. She and her both recently had cold-like symptoms, cough, congestion, and are still recovering. Additionally, she reports that she had a "stitch" on her left side causing some discomfort. Patient denies smoking, tobacco use, recent alcohol use. She reports that she has had COVID in the past, and that she has received the vaccinations and booster in the past. Patient reports she took a COVID test on Friday, which was negative, prior to her surgery. Patient is mildly hypertensive at 157/94 at time of admission; vitals otherwise stable. ED course: NSS 1000 mL IV ROS: Patient endorses generalized weakness, lightheadedness since the surgery, nausea, presyncope, flushed face, slurred speech, sinus pressure, productive cough (green/brown sputum production), and loose stool. Patient denies fever, chills, night-sweats, syncope, chest pain, SOB, abdominal pain, vomiting, diarrhea, blood in the urine/stool, dysuria, burning with urination, or numbness/tingling in the arms or legs. Discharge Exam PHYSICAL EXAMINATION Last 24h vital signs reviewed, see documentation in flowsheet General: comfortable appearing, no distress HEENT: Normocephalic, atraumatic, pupils round and reactive, left pupil very slightly smaller on daylight exam, EOMI, no facial asymmetry, sclerae anicteric, no conjunctival injection, moist mucus membranes Lungs: Normal respiratory effort. Clear to auscultation bilaterally. No RRW Heart: Regular rate and rhythm, no murmurs. No JVD Abdomen: Soft, nontender, nondistended. Bowel sounds present. Extremities: Warm, dry, well-perfused. No extremity edema. right knee dressed in surgical dressing Neuro: Alert and oriented x 4, face symmetric, moves 4 extremities well Psych: Normal affect and behavior Discharge Plan Discharge Items Patient Disposition: Home - Self-Care Reason For Visit: SLURRED SPEECH, PRESYNCOPAL EPISODE Discharge Diagnosis: Presyncope, low blood pressure, probable vasovagal reaction Activity: Resume your previous activity Non-emergency contact: Primary Care Provider and Surgeon Call non-emergency contact if: you have any medication questions and your symptoms worsen Follow-up/Referrals: Smita Winslow CRNP [Primary Care Provider] - 06/24/24 10:30 am (Hospital follow up scheduled June 24 at 10:30) Carlos Claros MD [Physician] - Diet: Regular Addtl Attending Provider Instructions: You had episode of low blood pressure causing you to almost pass out and other symptoms such as slurred speech and weakness This was highly likely a vasovagal reaction - an exaggerated normal reflex of the body that causes heart rate and BP to drop, and can cause people to pass out Imaging was negative for stroke or other concerning neurological findings - no bleeding, no clogged blood vessels in head or neck, no acute stroke or other acute findings on brain MRI You have an infection with (non-COVID) type coronavirus - this causes common- cold type symptoms and is usually not serious Your hemoglobin A1c test is elevated at 5.9 so you are at high risk for developing diabetes in the future -weight loss, healthy diet, and increased exercise can reverse this -follow up in primary care Follow up with Dr. Claros as scheduled for your knee You have some mild anemia - take ferrous sulfate every other day for about a month in case you have iron deficiency. Have your blood count checked in primary care in 4-6 weeks It was a pleasure taking care of you in the hospital, Reanna Servin MD Pending Studies at Discharge: No Stand-Alone Forms: My [employer], Smoking Cessation Medications and DC Order Prescriptions: New ferrous sulfate 325 mg (65 mg iron) tablet 325 mg PO Q OTHER DAY Qty: 14 0RF Rx Instructions: may buy OTC if not covered by insurance Continued levothyroxine [Synthroid] 112 mcg tablet 112 mcg PO QAM Qty: 30 11RF atorvastatin 20 mg tablet 20 mg PO QAM Qty: 90 3RF Rx Instructions: TAKE 1 TABLET BY MOUTH EVERY DAY pantoprazole 40 mg tablet,delayed release (DR/EC) 40 mg PO QAM Qty: 90 3RF fluticasone propionate 50 mcg/actuation spray,suspension 1 spray intranasal BID Qty: 48 3RF Rx Instructions: administer into each nostril lisinopril 5 mg tablet 5 mg PO QAM Qty: 90 3RF Rx Instructions: pt aware reduced dose sennosides [Senokot] 8.6 mg tablet 8.6 mg PO BID 14 Days Qty: 28 0RF Rx Instructions: Unable to verify OTC meds at this date/time. acetaminophen [Tylenol Extra Strength] 500 mg tablet 1,000 mg PO TID 30 Days Qty: 180 0RF Rx Instructions: Unable to verify OTC meds at this date/time. ondansetron 4 mg tablet,disintegrating 4 mg PO Q8 PRN (Reason: nausea) Qty: 20 1RF Rx Instructions: Take as needed for nausea oxycodone 5 mg tablet 5 - 10 mg PO Q6 PRN (Reason: pain) Qty: 40 0RF Rx Instructions: Take as needed for pain cefadroxil 500 mg capsule 500 mg PO BID 7 Days Qty: 14 0RF Rx Instructions: Start Date 06/12/24 x7 day supply loratadine [Claritin] 10 mg tablet 10 mg PO QPM Rx Instructions: Unable to verify OTC meds at this date/time. triamcinolone acetonide 0.1 % cream 1 applic topical BID Qty: 30 0RF cholecalciferol (vitamin D3) [Vitamin D3] 5,000 unit Tablet 5,000 unit PO QAM Rx Instructions: Unable to verify OTC meds at this date/time. Digestive Advantage Prob Gummy 250 million cell Tablet,Chewable 500 cell PO QAM Rx Instructions: Unable to verify OTC meds at this date/time. multivitamin Tablet 1 tab PO QAM Rx Instructions: Unable to verify OTC meds at this date/time. glucosamine-chondroitin [Osteo Bi-Flex] 250-200 mg Tablet 1 tab PO BID Rx Instructions: Unable to verify OTC meds at this date/time. cyanocobalamin (vitamin B-12) [Vitamin B-12] 1,000 mcg Tablet 1,000 mcg PO QAM Qty: 0 Rx Instructions: Unable to verify OTC meds at this date/time. Xarelto 20 mg Tablet 20 mg PO QAM Rx Instructions: must administer with evening meal Discharge Orders: Discharge Order (Routine); Ordered 06/19/24 Ordered By: Reanna Wilburn/Other Patient Handouts: Understanding Vasovagal Syncope Admission Data Admit Date/Time: 06/18/24 15:54 Attending Provider: Reanna Servin Admit Provider: Bryon Massey Primary Care Provider: Smita Winslow Other Providers: Bryon Massey Other Interventions: Discharge Summary Assessment (RN) Last Done: 06/19/24 10:25 Hospital Stay Data Consultations 06/18/24 15:16 ED Decision to Admit Stat Diagnostic Imagining Performed 06/18/24 14:01 CT angio head w con Stat CT angio neck with con Stat CT head/brain wo con Stat 06/18/24 15:16 MR brain wo con Stat Pending Results Patient Have Any Pending Studies at Discharge: No Discharge Instructions Given to Patient (Per Discharging Provider) You had episode of low blood pressure causing you to almost pass out and other symptoms such as slurred speech and weakness This was highly likely a vasovagal reaction - an exaggerated normal reflex of the body that causes heart rate and BP to drop, and can cause people to pass out Imaging was negative for stroke or other concerning neurological findings - no bleeding, no clogged blood vessels in head or neck, no acute stroke or other acute findings on brain MRI You have an infection with (non-COVID) type coronavirus - this causes common- cold type symptoms and is usually not serious Your hemoglobin A1c test is elevated at 5.9 so you are at high risk for developing diabetes in the future -weight loss, healthy diet, and increased exercise can reverse this -follow up in primary care Follow up with Dr. Claros as scheduled for your knee You have some mild anemia - take ferrous sulfate every other day for about a mon th in case you have iron deficiency. Have your blood count checked in primary care in 4-6 weeks It was a pleasure taking care of you in the hospital, Reanna Malathi MD Total Time Total Time Spent Total Time Spent (In Minutes): less than 30 minutes Coding Level of Care Code 99469 IN/OBS DISCH 30 MIN/LESS Diagnoses Pre-syncope R55 Status post right knee replacement Z96.651 History of pulmonary embolism Z86.711
== END 2024-06-19 11:19 | disposition home or self-care (01) ==
LOC: ED 13:25 → 2S 13:25 → SUATTDRO 15:54 → 2S 18:04